=== PATIENT | male | born 1940 | race Caucasian/White ===

== ENCOUNTER 2019-01-28 11:06 | Emergency (ER) | payer MEDICARE, OTHER, SELFPAY ==
[2019-01-28] VITALS (11 sets, daily range): BP systolic 130–159; BP diastolic 68–94; PULSE 58–71; RESP 12–23; TEMP 36.6; O2SAT 92–100
--- NOTE | 2019-01-28 11:20 | DI.RAD.S_ITS ---
PROCEDURE: XR CHEST 1V INDICATIONS: chest pain TECHNIQUE: One view of the chest was acquired. COMPARISON: [facility], CR, XR CHEST 2VW, 12/29/2015, 16:21. FINDINGS: Surgical changes and devices: None. Lungs and pleura: Lungs are clear. No pleural effusions or pneumothorax. Mediastinum: Mediastinal contours appear normal. Heart size is normal. Bones and chest wall: No suspicious bony lesions. Overlying soft tissues appear unremarkable. IMPRESSION: No acute process. Dictated by: Bob Little M.D. on 01/28/2019 at 11:39 Approved by: Bob Little M.D. on 01/28/2019 at 11:39
[2019-01-28 11:34] LABS: Add Manual Diff / Slide Review NO; Basophils Absolute Auto 0 /uL (0-100); Basophils Percent Auto 0.7 % (0-2); Eosinophils Absolute Auto 400 /uL (0-450); Eosinophils Percent Auto 6.9 % (2-4); Hematocrit 40.4 % (41-53); Hemoglobin 13.7 g/dL (13.5-17.5); Lymphocytes Absolute Auto 1400 /uL (1100-4500); Lymphocytes Percent Auto 22.2 % (25-40); Mean Corpuscular HGB Conc 33.8 % (30-36); Mean Corpuscular Hemoglobin 31.6 PG (26-34); Mean Corpuscular Volume 93.4 fL (80-100); Monocytes Absolute Auto 500 /uL (0-900); Monocytes Percent Auto 8.2 % (3-14); Neutrophils Absolute Auto 4000 /uL (1500-7000); Platelet Count 232 X10^3/uL (150-400); Red Blood Cell Count 4.33 X10^6/uL (4.5-5.9); Red Cell Distribution Width 12.9 % (11.6-14.8); White Blood Cell Count 6.4 X10^3/uL (4.5-11.0)
[2019-01-28 11:41] LABS: INR 0.9 (0.9-1.3); Prothrombin Time 10.9 SECONDS (10.1-12.7)
[2019-01-28 11:44] LABS: PTT Partial Thromboplastin Tim 27 SECONDS (26.4-36.2)
[2019-01-28 11:49] LABS: Alanine Aminotransferase 21 IU/L (21-72); Albumin 4.1 g/dL (3.5-5.0); Albumin Globulin Ratio 1.2 (1.0-2.8); Alkaline Phosphatase 44 U/L (38-126); Aspartate Aminotransferase 25 IU/L (17-59); BUN Creatinine Ratio 26.4 (6-22); Bilirubin Total 0.5 mg/dL (0.2-1.3); Blood Urea Nitrogen 29 mg/dL (9-20); Carbon Dioxide 27 mmol/L (22-32); Chloride 100 mmol/L (98-107); Creatine Kinase 52 U/L (55-170); Estimated Glomerular Filt Rate > 60.0 mL/min (>60); Globulin 3.4 g/dL (1.7-4.1); Glucose 90 mg/dL (80-110); HEMOLYSIS 26 (0-50); Lipase 80 U/L (23-300); Potassium 4.3 mmol/L (3.4-5.1); Sodium 136 mmol/L (137-145); Total Protein 7.5 g/dL (6.3-8.2)
[2019-01-28] MEDS: ASPIRIN 81 MG TAB 324 MG PO (11:49)
[2019-01-28 11:58] LABS: Troponin I < 0.012 ng/mL (0.01-0.034)
--- NOTE | 2019-01-28 12:00 | ED.CHESTPAIN ---
HPI - Chest Pain General Chief Complaint: Chest Pain Stated Complaint: chest pain on left side Time Seen by Provider: 01/28/19 11:21 Source: patient Mode of arrival: ambulatory Limitations: no limitations History of Present Illness HPI narrative: 79-year-old male without a prior cardiac history here for evaluation of a couple days of sharp left-sided chest discomfort. He states that it lasts seconds. Does not seem to be associated with activity however he did have several episodes of yesterday when he was moving some brush around. No other associated symptoms. Not better worse with palpation or breathing. Has not tried anything for prior to arrival. Related Data Home Medications Medication Instructions Recorded Confirmed Glucosamine 1 tab PO DAILY 01/28/19 01/28/19 losartan-hydrochlorothiazide 1 tab PO QPM 01/28/19 01/28/19 pravastatin 20 mg PO QPM 01/28/19 01/28/19 Allergies Allergy/AdvReac Type Severity Reaction Status Date / Time No Known Drug Allergies Allergy Verified 01/28/19 11:13 Review of Systems Constitutional Denies fever(s) and Denies headache(s) ENT Ears, Nose, Mouth, and Throat: Denies headache(s) Cardiovascular Reports chest pain (Sharp left-sided occasional chest pain), Denies edema, Denies leg edema and Denies dyspnea Respiratory Denies cough and Denies dyspnea Gastrointestinal Gastrointestinal: Denies abdominal pain, Denies nausea and Denies vomiting Genitourinary Denies dysuria Musculoskeletal Denies back pain, Denies myalgias and Denies arthralgias Integumentary/Breasts Denies rash Neurologic Denies behavioral changes and Denies headache(s) Psychiatric Denies behavioral changes Hematologic/Lymphatic Denies easy bleeding and Denies easy bruising Allergic/Immunologic Denies urticaria PFSH Medical History Healthy adult (Acute) Social History Smoking Status: Never smoker Social History Smoking Status: Never smoker Exam Initial Vital Signs Initial Vital Signs: Vital Signs Temperature 97.8 F 01/28/19 11:10 Pulse Rate 70 01/28/19 11:10 Respiratory Rate 14 01/28/19 11:10 Blood Pressure 147/81 H 01/28/19 11:10 Pulse Oximetry 97 01/28/19 11:10 Const General: cooperative, healthy appearing, comfortable, well developed, well groomed and No acute distress Orientation: alert, awake and oriented x3 HENMT Head: normal to inspection and normocephalic Chest Chest: normal inspection of the chest Resp Effort & Inspection: normal respiratory effort Auscultation: clear to auscultation bilaterally Cardio Rate: regular rate Rhythm: regular rhythm Pulses: radial pulses present GI Inspection: non-distended Palpation: soft, No firm and No tender Skin Lesions: no lesions Rashes: no rashes Neuro General: alert, awake and oriented x3 Cognition: normal cognition Speech: speech normal Extrem General: normal to inspection and capillary refill normal Psych Appearance: grossly normal and well kempt Course Orders Ordered: ED Orders 01/28/19 11:20 XR chest 1V Stat EKG-12 Lead Stat 01/28/19 11:25 Complete Blood Count AUTO DIFF Stat Comprehensive Metabolic Panel Stat Lipase Stat Partial Thromboplastin Time Stat Prothrombin Time INR Stat Troponin & CK Cardiac Panel Stat 01/28/19 14:37 Troponin I Stat Discontinued Medications Aspirin (Aspirin Chew) 324 mg PO NOW ONE Stop: 01/28/19 11:21 Last Admin: 01/28/19 11:49 Dose: 324 mg Vital Signs - 8 hr 01/28/19 11:10 01/28/19 11:30 01/28/19 12:00 Temperature 97.8 F Pulse Rate 70 68 67 Respiratory Rate 14 21 13 Blood Pressure 147/81 H Blood Pressure [Right Arm] 130/72 156/94 H Pulse Oximetry 97 98 100 01/28/19 12:30 01/28/19 13:02 01/28/19 13:30 Temperature Pulse Rate 58 L 65 65 Respiratory Rate 18 12 14 Blood Pressure Blood Pressure [Right Arm] 135/78 146/83 H 159/68 H Pulse Oximetry 97 100 100 01/28/19 14:00 01/28/19 14:30 01/28/19 15:00 Temperature Pulse Rate 62 71 67 Respiratory Rate 12 16 23 Blood Pressure Blood Pressure [Right Arm] 140/79 141/80 H 143/83 H Pulse Oximetry 100 92 97 01/28/19 15:30 01/28/19 16:00 Temperature Pulse Rate 67 67 Respiratory Rate 22 Blood Pressure Blood Pressure [Right Arm] 149/81 H 142/80 H Pulse Oximetry 97 MDM - Chest Pain Lab Data Attestation: I reviewed the patient's lab results. Result diagrams: 01/28/19 11:25 01/28/19 11:25 Lab Results 01/28/19 01/28/19 01/28/19 Range/Units 11:25 11:25 11:25 WBC 6.4 (4.5-11.0) X10^3/uL RBC 4.33 L (4.5-5.9) X10^6/uL Hgb 13.7 (13.5-17.5) g/dL Hct 40.4 L (41-53) % MCV 93.4 (80-100) fL MCH 31.6 (26-34) PG MCHC 33.8 (30-36) % RDW 12.9 (11.6-14.8) % Plt Count 232 (150-400) X10^3/uL Neut % (Auto) 62.0 (50-75) % Lymph % (Auto) 22.2 L (25-40) % [place] % (Auto) 8.2 (3-14) % Eos % (Auto) 6.9 H (2-4) % Baso % (Auto) 0.7 (0-2) % Neut # (Auto) 4000 (9068-8331) /uL Lymph # (Auto) 1400 (7221-4040) /uL [place] # (Auto) 500 (0-900) /uL Eos # (Auto) 400 (0-450) /uL Baso # (Auto) 0 (0-100) /uL PT 10.9 (10.1-12.7) SECONDS INR 0.9 (0.9-1.3) APTT 27 (26.4-36.2) SECONDS Sodium 136 L (137-145) mmol/L Potassium 4.3 (3.4-5.1) mmol/L Chloride 100 (98-107) mmol/L Carbon Dioxide 27 (22-32) mmol/L BUN 29 H (9-20) mg/dL Creatinine 1.10 (0.66-1.25) mg/dL Estimated GFR > 60.0 (>60) mL/min BUN/Creatinine Ratio 26.4 H (6-22) Glucose 90 (80-110) mg/dL Calcium 9.0 (8.4-10.2) mg/dL Total Bilirubin 0.5 (0.2-1.3) mg/dL AST 25 (17-59) IU/L ALT 21 (21-72) IU/L Alkaline Phosphatase 44 (38-126) U/L Total Creatine Kinase 52 L (55-170) U/L CK-MB (CK-2) TNP CK-MB (CK-2) Rel Index TNP Troponin I < 0.012 (0.01-0.034) ng/mL Total Protein 7.5 (6.3-8.2) g/dL Albumin 4.1 (3.5-5.0) g/dL Globulin 3.4 (1.7-4.1) g/dL Albumin/Globulin Ratio 1.2 (1.0-2.8) Lipase 80 (23-300) U/L 01/28/19 Range/Units 14:37 WBC (4.5-11.0) X10^3/uL RBC (4.5-5.9) X10^6/uL Hgb (13.5-17.5) g/dL Hct (41-53) % MCV (80-100) fL MCH (26-34) PG MCHC (30-36) % RDW (11.6-14.8) % Plt Count (150-400) X10^3/uL Neut % (Auto) (50-75) % Lymph % (Auto) (25-40) % [place] % (Auto) (3-14) % Eos % (Auto) (2-4) % Baso % (Auto) (0-2) % Neut # (Auto) (2043-8545) /uL Lymph # (Auto) (2867-9343) /uL [place] # (Auto) (0-900) /uL Eos # (Auto) (0-450) /uL Baso # (Auto) (0-100) /uL PT (10.1-12.7) SECONDS INR (0.9-1.3) APTT (26.4-36.2) SECONDS Sodium (137-145) mmol/L Potassium (3.4-5.1) mmol/L Chloride (98-107) mmol/L Carbon Dioxide (22-32) mmol/L BUN (9-20) mg/dL Creatinine (0.66-1.25) mg/dL Estimated GFR (>60) mL/min BUN/Creatinine Ratio (6-22) Glucose (80-110) mg/dL Calcium (8.4-10.2) mg/dL Total Bilirubin (0.2-1.3) mg/dL AST (17-59) IU/L ALT (21-72) IU/L Alkaline Phosphatase (38-126) U/L Total Creatine Kinase (55-170) U/L CK-MB (CK-2) CK-MB (CK-2) Rel Index Troponin I < 0.012 (0.01-0.034) ng/mL Total Protein (6.3-8.2) g/dL Albumin (3.5-5.0) g/dL Globulin (1.7-4.1) g/dL Albumin/Globulin Ratio (1.0-2.8) Lipase (23-300) U/L Imaging Data Chest x-ray: Radiologist's impression: [address] [address] XRay Report Signed Patient: Mushtaq Casper CMR#: [id number] : 1940Acct:[id number] Age/Sex: 79 / MDate of Service: 01/28/19 Loc: ED Accession Number: [id number] Procedure: XR chest 1V Ordering Provider: Dinesh Peres D.O. PROCEDURE: XR CHEST 1V INDICATIONS: chest pain TECHNIQUE: One view of the chest was acquired. COMPARISON: [facility], , XR CHEST 2VW, 12/29/2015, 16:21. FINDINGS: Surgical changes and devices: None. Lungs and pleura: Lungs are clear. No pleural effusions or pneumothorax. Mediastinum: Mediastinal contours appear normal. Heart size is normal. Bones and chest wall: No suspicious bony lesions. Overlying soft tissues appear unremarkable. IMPRESSION: No acute process. Dictated by: Bob Little M.D. on 01/28/2019 at 11:39 Approved by: Bob Little M.D. on 01/28/2019 at 11:39 ECG Data Attestation: I personally reviewed and interpreted this ECG as follows: Prior ECG tracings: not available for review Interpretation: Sinus rhythm Ventricular rate is 69 Normal axis It over QRS Nonspecific ST T wave changes MDM Narrative Medical decision making narrative: Patient here with very atypical left-sided chest pain. They were sharp, stabbing left-sided pain that lasting seconds. His troponin has been negative x2. He is stable. I have a low suspicion that this is ACS. I feel given his EKG, his history and and his 2-troponins that he could follow up as an outpatient for further testing. We did discuss this. We did discuss return precautions. We did discuss the importance of following up with his primary doctor. He expressed understanding and agreement with plan. Discharge Plan Departure Interventions: ED Discharge Assessment Last Done: 01/28/19 16:09 Prescriptions: No Action pravastatin 20 mg Tablet 20 mg PO QPM RF: 0 losartan-hydrochlorothiazide 50-12.5 mg Tablet 1 tab PO QPM RF: 0 Glucosamine 1 tab PO DAILY RF: 0
[2019-01-28 15:12] LABS: Troponin I < 0.012 ng/mL (0.01-0.034)
--- NOTE | 2019-01-28 18:21 | ED_ITS ---
HPI - Chest Pain General Chief Complaint: Chest Pain Stated Complaint: chest pain on left side Time Seen by Provider: 01/28/19 11:21 Source: patient Mode of arrival: ambulatory Limitations: no limitations Related Data Home Medications Medication Instructions Recorded Confirmed Glucosamine 1 tab PO DAILY 01/28/19 01/28/19 losartan-hydrochlorothiazide 1 tab PO QPM 01/28/19 01/28/19 pravastatin 20 mg PO QPM 01/28/19 01/28/19 Allergies Allergy/AdvReac Type Severity Reaction Status Date / Time No Known Drug Allergies Allergy Verified 01/28/19 11:13 Review of Systems Constitutional Denies headache(s) ENT Ears, Nose, Mouth, and Throat: Denies headache(s) Neurologic Denies behavioral changes and Denies headache(s) Psychiatric Denies behavioral changes PFSH Medical History Healthy adult (Acute) Social History Smoking Status: Never smoker Social History Smoking Status: Never smoker Exam Initial Vital Signs Initial Vital Signs: Vital Signs Temperature 97.8 F 01/28/19 11:10 Pulse Rate 70 01/28/19 11:10 Respiratory Rate 14 01/28/19 11:10 Blood Pressure 147/81 H 01/28/19 11:10 Pulse Oximetry 97 01/28/19 11:10 Course Orders Ordered: ED Orders 01/28/19 11:20 XR chest 1V Stat EKG-12 Lead Stat 01/28/19 11:25 Complete Blood Count AUTO DIFF Stat Comprehensive Metabolic Panel Stat Lipase Stat Partial Thromboplastin Time Stat Prothrombin Time INR Stat Troponin & CK Cardiac Panel Stat 01/28/19 14:37 Troponin I Stat Discontinued Medications Aspirin (Aspirin Chew) 324 mg PO NOW ONE Stop: 01/28/19 11:21 Last Admin: 01/28/19 11:49 Dose: 324 mg Vital Signs - 8 hr 01/28/19 11:10 01/28/19 11:30 01/28/19 12:00 Temperature 97.8 F Pulse Rate 70 68 67 Respiratory Rate 14 21 13 Blood Pressure 147/81 H Blood Pressure [Right Arm] 130/72 156/94 H Pulse Oximetry 97 98 100 01/28/19 12:30 01/28/19 13:02 01/28/19 13:30 Temperature Pulse Rate 58 L 65 65 Respiratory Rate 18 12 14 Blood Pressure Blood Pressure [Right Arm] 135/78 146/83 H 159/68 H Pulse Oximetry 97 100 100 01/28/19 14:00 01/28/19 14:30 01/28/19 15:00 Temperature Pulse Rate 62 71 67 Respiratory Rate 12 16 23 Blood Pressure Blood Pressure [Right Arm] 140/79 141/80 H 143/83 H Pulse Oximetry 100 92 97 01/28/19 15:30 01/28/19 16:00 Temperature Pulse Rate 67 67 Respiratory Rate 22 Blood Pressure Blood Pressure [Right Arm] 149/81 H 142/80 H Pulse Oximetry 97 MDM - Chest Pain Lab Data Result diagrams: 01/28/19 11:25 01/28/19 11:25 Lab Results 01/28/19 01/28/19 01/28/19 Range/Units 11:25 11:25 11:25 WBC 6.4 (4.5-11.0) X10^3/uL RBC 4.33 L (4.5-5.9) X10^6/uL Hgb 13.7 (13.5-17.5) g/dL Hct 40.4 L (41-53) % MCV 93.4 (80-100) fL MCH 31.6 (26-34) PG MCHC 33.8 (30-36) % RDW 12.9 (11.6-14.8) % Plt Count 232 (150-400) X10^3/uL Neut % (Auto) 62.0 (50-75) % Lymph % (Auto) 22.2 L (25-40) % [place] % (Auto) 8.2 (3-14) % Eos % (Auto) 6.9 H (2-4) % Baso % (Auto) 0.7 (0-2) % Neut # (Auto) 4000 (1872-8813) /uL Lymph # (Auto) 1400 (7366-4350) /uL [place] # (Auto) 500 (0-900) /uL Eos # (Auto) 400 (0-450) /uL Baso # (Auto) 0 (0-100) /uL PT 10.9 (10.1-12.7) SECONDS INR 0.9 (0.9-1.3) APTT 27 (26.4-36.2) SECONDS Sodium 136 L (137-145) mmol/L Potassium 4.3 (3.4-5.1) mmol/L Chloride 100 (98-107) mmol/L Carbon Dioxide 27 (22-32) mmol/L BUN 29 H (9-20) mg/dL Creatinine 1.10 (0.66-1.25) mg/dL Estimated GFR > 60.0 (>60) mL/min BUN/Creatinine Ratio 26.4 H (6-22) Glucose 90 (80-110) mg/dL Calcium 9.0 (8.4-10.2) mg/dL Total Bilirubin 0.5 (0.2-1.3) mg/dL AST 25 (17-59) IU/L ALT 21 (21-72) IU/L Alkaline Phosphatase 44 (38-126) U/L Total Creatine Kinase 52 L (55-170) U/L CK-MB (CK-2) TNP CK-MB (CK-2) Rel Index TNP Troponin I < 0.012 (0.01-0.034) ng/mL Total Protein 7.5 (6.3-8.2) g/dL Albumin 4.1 (3.5-5.0) g/dL Globulin 3.4 (1.7-4.1) g/dL Albumin/Globulin Ratio 1.2 (1.0-2.8) Lipase 80 (23-300) U/L 01/28/19 Range/Units 14:37 WBC (4.5-11.0) X10^3/uL RBC (4.5-5.9) X10^6/uL Hgb (13.5-17.5) g/dL Hct (41-53) % MCV (80-100) fL MCH (26-34) PG MCHC (30-36) % RDW (11.6-14.8) % Plt Count (150-400) X10^3/uL Neut % (Auto) (50-75) % Lymph % (Auto) (25-40) % [place] % (Auto) (3-14) % Eos % (Auto) (2-4) % Baso % (Auto) (0-2) % Neut # (Auto) (0036-1845) /uL Lymph # (Auto) (8325-0093) /uL [place] # (Auto) (0-900) /uL Eos # (Auto) (0-450) /uL Baso # (Auto) (0-100) /uL PT (10.1-12.7) SECONDS INR (0.9-1.3) APTT (26.4-36.2) SECONDS Sodium (137-145) mmol/L Potassium (3.4-5.1) mmol/L Chloride (98-107) mmol/L Carbon Dioxide (22-32) mmol/L BUN (9-20) mg/dL Creatinine (0.66-1.25) mg/dL Estimated GFR (>60) mL/min BUN/Creatinine Ratio (6-22) Glucose (80-110) mg/dL Calcium (8.4-10.2) mg/dL Total Bilirubin (0.2-1.3) mg/dL AST (17-59) IU/L ALT (21-72) IU/L Alkaline Phosphatase (38-126) U/L Total Creatine Kinase (55-170) U/L CK-MB (CK-2) CK-MB (CK-2) Rel Index Troponin I < 0.012 (0.01-0.034) ng/mL Total Protein (6.3-8.2) g/dL Albumin (3.5-5.0) g/dL Globulin (1.7-4.1) g/dL Albumin/Globulin Ratio (1.0-2.8) Lipase (23-300) U/L Discharge Plan Departure Interventions: ED Discharge Assessment Last Done: 01/28/19 16:09 Instructions: DI for Atypical Chest Pain Activity Restrictions/Additional Instructions: Continue all of your medications as directed. You can call the [facility] at [phone]. Or you can call the [facility] at [phone]. Return to the emergency department for any new or worsening symptoms Prescriptions: No Action pravastatin 20 mg Tablet 20 mg PO QPM RF: 0 losartan-hydrochlorothiazide 50-12.5 mg Tablet 1 tab PO QPM RF: 0 Glucosamine 1 tab PO DAILY RF: 0
== END 2019-01-28 16:10 | disposition home or self-care (01) ==
PROVIDERS: Emergency Provider Emergency Medicine
DX: R07.89 Other chest pain (principal)
CPT/HCPCS: 36415; 36591; 71045; 80053; 82550; 83690; 84484; 85025; 85610; 85730; 93005; 93010; 99284; 99285

== ENCOUNTER 2019-09-14 12:11 | Emergency (ER) | payer MEDICARE, OTHER, SELFPAY ==
[2019-09-14 12:33] VITALS: BP 158/86; PULSE 66; RESP 14; TEMP 36.7; O2SAT 100; BMI 29.1
--- NOTE | 2019-09-14 12:50 | ED.BACK ---
HPI - Back Pain/Injury General Chief Complaint: Back Pain/Injury Stated Complaint: back went out Time Seen by Provider: 09/14/19 12:28 Source: patient Mode of arrival: Ambulatory Limitations: no limitations History of Present Illness HPI Narrative: 79-year-old male here for evaluation of back pain. Patient states that he was sitting down to go to the bathroom this morning when his sudden onset of back pain. He did urinate on himself the time but he thought that was because he had use the restroom. He does not have any saddle anesthesia. No radiation down his legs. He does have a history of prostate cancer. States the pain comes and goes. Not worse with palpation but is worse with movement. Related Data Home Medications Medication Instructions Recorded Confirmed losartan-hydrochlorothiazide 1 tab PO QPM 01/28/19 09/14/19 pravastatin 20 mg PO DAILY 09/14/19 09/14/19 Allergies Allergy/AdvReac Type Severity Reaction Status Date / Time No Known Drug Allergies Allergy Verified 01/28/19 11:13 Review of Systems Constitutional Constitutional: Denies frequent falls and Denies headache(s) ENT Ears, Nose, Mouth, and Throat: Denies headache(s) Cardiovascular Cardiovascular: Denies chest pain and Denies dyspnea Respiratory Respiratory: Denies dyspnea Gastrointestinal Gastrointestinal: Denies abdominal pain Musculoskeletal Musculoskeletal: Denies myalgias and Denies arthralgias Integumentary/Breasts Skin/Breast: Denies lesions and Denies rash Neurologic Neurologic: Denies behavioral changes, Denies frequent falls and Denies headache(s) Psychiatric Psychiatric: Denies behavioral changes Hematologic/Lymphatic Hematologic/Lymphatic: Denies easy bleeding and Denies easy bruising Patient History Medical History Healthy adult (Acute) Hyperlipidemia (Acute) Hypertension (Acute) Prostate cancer (Acute) Social History Smoking Status: Never smoker alcohol intake frequency: 0-2 drinks per day Substance Use Type: does not use Exam Initial Vital Signs Initial Vital Signs: Vital Signs Temperature 98.1 F 09/14/19 12:33 Pulse Rate 66 09/14/19 12:33 Respiratory Rate 14 09/14/19 12:33 Blood Pressure 158/86 H 09/14/19 12:33 Pulse Oximetry 100 09/14/19 12:33 Const General: cooperative, comfortable, well developed and well groomed Orientation: alert and oriented x3 HENMT Head: normal to inspection and normocephalic Back/Spine/Pelvis Back: No CVA tenderness Cervical Spine: No collar present and No cervical spasm Thoracic/Lumbar Spine: No paraspinal tenderness, No thoracic spinal tenderness and No lumbar spinal tenderness Skin Lesions: no lesions Rashes: no rashes Neuro General: alert, awake and oriented x3 Cognition: normal cognition Speech: speech normal Gait: normal gait Motor: muscle tone normal throughout Sensory Exam: no sensory deficits noted Extrem General: normal to inspection and capillary refill normal Psych Appearance: grossly normal and well kempt Course Orders Ordered: ED Orders 09/14/19 12:51 CT lumbar spine wo con Stat Discontinued Medications Hydrocodone Bitart/Acetaminophen ([place] 5/325) 1 tab PO NOW ONE Stop: 09/14/19 12:52 Last Admin: 09/14/19 13:13 Dose: 1 tab Documented by: TREY Vital Signs Vital signs: Vital Signs - 8 hr 09/14/19 12:33 09/14/19 14:02 Temperature 98.1 F Pulse Rate 66 78 Respiratory Rate 14 14 Blood Pressure 158/86 H Blood Pressure [Right Arm] 130/90 Pulse Oximetry 100 98 MDM - Back Pain/Injury Lab Data Attestation: I reviewed the patient's lab results. Labs: Urine Dip Bedside Urine Glucose Negative Bedside Urine Bilirubin - Negative Bedside Urine Ketone - Negative Urine Specific [place] 1.010 Bedside Urine Occult Blood - Negative Bedside Urine pH 6.0 Bedside Urine Protein - Negative Bedside Urine Urobilinogen - Negative Bedside Urine Nitrite - Negative Bedside Urine Leukocytes - Negative Esterase Imaging Data CT lumbar spine: Radiologist's impression: [address] [address] [address] Scan Report Signed Patient: Mushtaq Casper CMR#: [id number] : 8Acct:[id number] Age/Sex: 79 / MDate of Service: 09/14/19 Loc: ED Accession Number: [id number] Procedure: CT lumbar spine wo con Ordering Provider: Dinesh Peres D.O. PROCEDURE: CT LUMBAR SPINE WO CON INDICATIONS: L spine pain with hx of prostate CA TECHNIQUE: Noncontrast 3 mm thick sections acquired from the T12 level to the sacrum. Sagittal and coronal reformats were constructed. For radiation dose reduction, the following was used: automated exposure control. COMPARISON: None. FINDINGS: Image quality: Excellent. Bones: There is normal bony alignment there is mild degenerative anterolisthesis of L4 on L5 measuring approximately 6 mm. There is mild degenerative retrolisthesis of L5 on S1 measuring approximately 4 mm. The other vertebral bodies are normally aligned. No lytic or blastic bony lesions. Central spinal caliber is of normal overall caliber. No pars defects. T11-T12: No canal stenosis. Bilateral facet hypertrophy. Mild lateral foraminal narrowing. T12-L1: Vacuum disc. Mild disc height loss. Mild disc bulge. No canal stenosis. Right facet hypertrophy. Mild right foraminal narrowing. L1-L2: Vacuum disc. Mild disc height loss. Diffuse posterior disc bulge plus osteophyte. Bilateral facet hypertrophy. Mild canal stenosis. Mild bilateral foraminal narrowing. L2-L3: Diffuse disc bulge. Facet and ligament hypertrophy. Moderate canal stenosis. Moderate bilateral foraminal narrowing with flattening of the bilateral L2 nerve root sleeves. L3-L4: Disc bulge. Facet and ligament hypertrophy. Moderate to severe canal stenosis. Moderate bilateral foraminal narrowing with flattening of the bilateral L3 nerve root sleeves. L4-L5: Mild anterolisthesis of L4 on L5. Diffuse disc bulge. Bulky facet and ligament hypertrophy. Canal stenosis is overestimated based on scan plane in the axial plane. It is likely moderate. There is moderate right foraminal narrowing with flattening of the right L4 nerve root sleeve. There is mild left foraminal narrowing. L5-S1: Severe chronic disc height loss with vacuum disc. Mild degenerative retrolisthesis of L5 on S1. Posterior disc bulge. Mild canal stenosis. Moderate to severe right foraminal narrowing and moderate left foraminal narrowing with flattening of the bilateral L5 nerve root sleeves are Soft tissues: No retroperitoneal masses or hematomas. Visualized aorta is normal in caliber. IMPRESSION: 1. No compression fracture or lytic or blastic bony lesion 2. Extensive multilevel facet arthropathy. 3. Multilevel canal stenosis is mild at L1-L2, moderate at L2-L3, moderate to severe at L3-4, moderate at L4-L5, and mild at L5-S1. 4. Multilevel foraminal narrowing as described above. Dictated by: Anson Thomson M.D. on 09/14/2019 at 13:15 Approved by: Anson Thomson M.D. on 09/14/2019 at 13:37 MDM Narrative Medical decision making narrative: CT scan shows no signs of metastasis. After pain medication patient was symptom-free and ambulate around the emergency department without any symptoms. He has no red flag symptoms consist for cauda equina. Unable to reproduce symptoms with palpation. No fevers. Urinalysis unremarkable. Hold on further workup for now. Patient states that he is okay with going home. He is given return precautions and follow-up instructions. Expressed understanding and agreement plan. Discharge Plan Departure Patient Disposition: Home Clinical Impression: Lumbar back pain Discharge Date/Time: 09/14/19 14:34 Instructions: DI for Low Back Pain Activity Restrictions/Additional Instructions: Continue all of your medications as directed. Keep all of your scheduled medical appointments. You can take Tylenol for any discomfort. Also recommend light stretching and heat. Contact your primary provider for follow-up. Return to the emergency department for any new or worsening symptoms Prescriptions: No Action pravastatin 20 mg tablet 20 mg PO DAILY RF: 0 losartan-hydrochlorothiazide 50-12.5 mg Tablet 1 tab PO QPM RF: 0
[2019-09-14] MEDS: HYDROCODONE/ACET 5/325 TABLET 1 TAB PO (13:13)
[2019-09-14 14:02] VITALS: BP 130/90; PULSE 78; RESP 14; O2SAT 98
== END 2019-09-14 14:34 | disposition home or self-care (01) ==
PROVIDERS: Emergency Provider Emergency Medicine
DX: M54.5 Low back pain (principal)
CPT/HCPCS: 72131; 81003; 99282; 99284

== ENCOUNTER 2020-07-04 10:07 | Emergency (ER) | payer MEDICARE, OTHER, SELFPAY ==
[2020-07-04 10:11] VITALS: BP 162/82; PULSE 73; RESP 16; TEMP 36.4; O2SAT 98; BMI 28.5
--- NOTE | 2020-07-04 10:19 | DI.RAD.S_ITS ---
PROCEDURE: XR LUMBAR SPINE 2-3V INDICATIONS: pain/no injury TECHNIQUE: 3 views of the lumbar spine were acquired. COMPARISON: None. FINDINGS: Bones: 5 [id number] vertebrae are present. There is mild grade 1 retrolisthesis L2 on L3 and L3 on L4. Multilevel disc space narrowing and endplate osteophyte formation. Multilevel facet hypertrophy throughout the lumbar spine. No vertebral body compression fractures. No suspicious bony lesions. Soft tissues: Overlying bowel gas pattern is normal. No suspicious soft tissue calcifications. IMPRESSION: Multilevel degenerative disc and facet disease. No acute fracture. No osseous lesion. If symptoms and/or clinical suspicion for pathology persist, further assessment with repeat, or advanced imaging (e.g., CT, MRI, or bone scan) may be helpful for further assessment. Dictated by: Bob Little M.D. on 07/04/2020 at 10:36 Approved by: Bob Little M.D. on 07/04/2020 at 10:37
--- NOTE | 2020-07-04 13:28 | ED_ITS ---
HPI - Back Pain/Injury <MARILEE Lopez - Last Filed: 07/04/20 14:35> General Chief Complaint: Back Pain/Injury Stated Complaint: Lower Back Pain Time Seen by Provider: 07/04/20 12:00 Source: patient Mode of arrival: Ambulatory Limitations: no limitations History of Present Illness HPI Narrative: This is a 80 year male, nonsmoker, who presents to ED with chief complain of bilateral low back pain which progressively worsening over a year and increases with movements. Patient denies recent falls or trauma. Patient has history of prostate cancer since 2000 and had prostate removal, left kidney removal in the past. Patient reports prostate cancer had returned in 2014 and has been following up with [facility] for treatment. Patient reports he has a follow-up appointment on 07/15/20 and will get annual bone scan done with urine and blood test. Patient denies fever, chills, nausea or vomiting. Patient denies rashes. Patient denies any new urinary symptoms including burning sensation or dysuria. Patient usually voids every 2 hours and there is no changes on this. Patient had increase stretching a few weeks ago and noticed increasing pain with this. Patient experience bilateral leg mild numbness about 2-3 weeks ago which has resolved at this time. Patient denies saddle anesthesia, incontinence for urine or bladder. Patient denies tingling, numbness, weakness on bilateral extremities. Patient drove himself to ER today. Patient declined to provide urine sample since he had just voided while he was waiting and he will have another test done at [facility]. Related Data Home Medications Medication Instructions Recorded Confirmed losartan-hydrochlorothiazide 1 tab PO QPM 01/28/19 09/14/19 pravastatin 20 mg PO DAILY 09/14/19 09/14/19 Previous Rx's Medication Instructions Recorded cyclobenzaprine 5 - 10 mg PO BEDTIME PRN #10 tab 07/04/20 lidocaine 1 patch TOP Q24H PRN #30 each 07/04/20 Allergies Allergy/AdvReac Type Severity Reaction Status Date / Time No Known Drug Allergies Allergy Verified 01/28/19 11:13 Review of Systems <MARILEE Lopez - Last Filed: 07/04/20 14:35> Review of Systems Narrative: General: Denies fever, chills, fatigue, malaise, sweats. HEENT: Denies sinus pain, ear pain, sore throat, difficulty swallowing, dizziness. Respiratory: Denies dyspnea, cough, wheezing, hemoptysis, sputum. Cardiovascular: Denies chest pain, palpitations, orthopnea, edema. Gastrointestinal: Denies nausea, vomiting, abdominal pain, diarrhea, constipation, melena. : Denies dysuria, frequency, incontinence, hematuria, urinary retention. Musculoskeletal: See HPI Skin: Denies rash, skin lesions, or other. Neurologic: Denies weakness, headache, numbness, change in speech, confusion, seizures, incoordination. Psychiatric: No concerning psychosocial issues. 12-point review of systems is negative except for those stated above. Patient History <MARILEE Lopez - Last Filed: 07/04/20 14:35> Medical History Healthy adult (Acute) Hyperlipidemia (Acute) Hypertension (Acute) Prostate cancer (Acute) Surgical History H/O kidney removal (Acute) Social History Smoking Status: Never smoker Smoking Status: Never smoker alcohol intake frequency: 0-2 drinks per day Substance Use Type: does not use Exam <MARILEE Lopez - Last Filed: 07/04/20 14:35> Narrative Exam Narrative: General appearance: well developed, well nourished, in no acute distress. Head: normocephalic, atraumatic, no scalp lesions, non-tender. ENT: Hearing grossly intact. Nose without bleeding, purulent discharge. Airway patent. Neck/Thyroid: neck supple, full range of motion, no visible masses or meningeal signs. No JVD, non-tender without lymphadenopathy. Skin: no suspicious rashes, lesions over visible areas. Warm and dry and appropriate color for ethnicity. Heart: no clubbing, no cyanosis, no edema. S1 and S2 normal. RRR w/o murmurs, clicks, or bruits. Lungs: Breathing even and unlabored. No stridor. No accessory muscles used. Able to speak in full sentences. Chest: normal shape and expansion. Abdomen: non-obese, non-distended. Neurologic: alert and oriented. Cognitive exam, [employer] and PNS grossly intact on informal exam. Psych: good eye contact, normal affect. Initial Vital Signs Initial Vital Signs: Vital Signs Temperature 97.5 F L 07/04/20 10:11 Pulse Rate 73 07/04/20 10:11 Respiratory Rate 16 07/04/20 10:11 Blood Pressure 162/82 H 07/04/20 10:11 Pulse Oximetry 98 07/04/20 10:11 Back/Spine/Pelvis Back: normal to inspection, No back tenderness, No CVA tenderness, No ecchymosis, No erythema, No mass and No warmth Thoracic/Lumbar Spine: No mass, pain with thoraco-lumbar ROM, No paraspinal tenderness, No thoracic spinal tenderness, No lumbar spinal tenderness, No tilt present and other (Patient reports bilateral paraspinal lumbar region deep discomfort) <Santana Melchor MD - Last Filed: 07/05/20 07:39> Initial Vital Signs Initial Vital Signs: Vital Signs Temperature 97.5 F L 07/04/20 10:11 Pulse Rate 73 07/04/20 10:11 Respiratory Rate 16 07/04/20 10:11 Blood Pressure 162/82 H 07/04/20 10:11 Pulse Oximetry 98 07/04/20 10:11 Scores <MARILEE Lopez - Last Filed: 07/04/20 14:35> GCS Emily coma scale eye opening: Spontaneous Emily coma scale verbal response: Orientated Emily coma scale motor response: Obey commands Shanks coma scale total score: 15 Course <MARILEE Lopez - Last Filed: 07/04/20 14:35> Orders Ordered: Discontinued Medications Acetaminophen (Tylenol) 650 mg PO NOW ONE Stop: 07/04/20 13:28 Last Admin: 07/04/20 13:57 Dose: 650 mg Documented by: JAYEONER Ibuprofen (Advil) 400 mg PO NOW ONE Stop: 07/04/20 13:28 Last Admin: 07/04/20 13:58 Dose: 400 mg Documented by: JAYEONER Lidocaine (Lidoderm) 1 each TOP NOW ONE Stop: 07/04/20 13:28 Last Admin: 07/04/20 13:58 Dose: 1 each Documented by: BTONER Vital Signs Vital signs: Vital Signs - 8 hr 07/04/20 10:11 07/04/20 14:06 Temperature 97.5 F L Pulse Rate 73 65 Respiratory Rate 16 16 Blood Pressure 162/82 H 188/80 H Pulse Oximetry 98 98 <Santana Melchor MD - Last Filed: 07/05/20 07:39> Orders Ordered: Discontinued Medications Acetaminophen (Tylenol) 650 mg PO NOW ONE Stop: 07/04/20 13:28 Last Admin: 07/04/20 13:57 Dose: 650 mg Documented by: BTONER Ibuprofen (Advil) 400 mg PO NOW ONE Stop: 07/04/20 13:28 Last Admin: 07/04/20 13:58 Dose: 400 mg Documented by: BTONER Lidocaine (Lidoderm) 1 each TOP NOW ONE Stop: 07/04/20 13:28 Last Admin: 07/04/20 13:58 Dose: 1 each Documented by: BTONER Vital Signs Vital signs: Vital Signs - 8 hr 07/04/20 10:11 07/04/20 14:06 Temperature 97.5 F L Pulse Rate 73 65 Respiratory Rate 16 16 Blood Pressure 162/82 H 188/80 H Pulse Oximetry 98 98 MDM - Back Pain/Injury <MARILEE Lopez - Last Filed: 07/04/20 14:35> Differential Diagnosis Differential diagnosis: Likely other (Lumbar strain, UTI, metastasized cancer) Medical Records Attestation: I reviewed the patient's medical records. Imaging Data XR-Lumbar: Radiologist's Impression: [address] [address] XRay Report Signed Patient: Mushtaq Casper CMR#: [id number] : 8Acct:[id number] Age/Sex: 80 / MDate of Service: 07/04/20 Loc: ED Accession Number: [id number] Procedure: XR lumbar spine 2-3V Ordering Provider: Santana Melchor MD PROCEDURE: XR LUMBAR SPINE 2-3V INDICATIONS: pain/no injury TECHNIQUE: 3 views of the lumbar spine were acquired. COMPARISON: None. FINDINGS: Bones: 5 [id number] vertebrae are present. There is mild grade 1 retrolisthesis L2 on L3 and L3 on L4. Multilevel disc space narrowing and endplate osteophyte formation. Multilevel facet hypertrophy throughout the lumbar spine. No vertebral body compression fractures. No suspicious bony lesions. Soft tissues: Overlying bowel gas pattern is normal. No suspicious soft tissue calcifications. IMPRESSION: Multilevel degenerative disc and facet disease. No acute fracture. No osseous lesion. If symptoms and/or clinical suspicion for pathology persist, further assessment with repeat, or advanced imaging (e.g., CT, MRI, or bone scan) may be helpful for further assessment. Dictated by: Bob Little M.D. on 07/04/2020 at 10:36 Approved by: Bob Little M.D. on 07/04/2020 at 10:37 [facility] Narrative Medical decision making narrative: This is a 80-year-old gentleman who presents to ED with low back pain which progressively became worse over 1 year. Patient has a history of prostate cancer and receiving his treatment through [facility]. Patient reports he has a follow-up appointment 07/15/20 with bone scan, blood test, and urine test. Patient denies saddle anesthesia, fever, recent instrumentation on his back, recent trauma or fall, incontinence problems. Lumbar x-ray test shows no acute findings but multiple degenerative disc and facet disease. Patient had CT lumbar on August 2019 when he visited ED with low back pain which showed disc bulging in L2-L3, L3-L4, L4-L5, canal stenosis in L5-S1. Low back pain has been treated with lidocaine patch, Tylenol and Motrin since patient drove himself to ED. discharged to home with lidocaine patch and Flexeril as needed for pain. Patient advised to follow-up with [facility] as scheduled and discussed return precautions. Patient declined to provide urine sample since patient does not have urinary symptoms and is not able to provided at this time. Patient verbalized understanding and in agreement with treatment plan. Discharge Plan Departure Patient Disposition: Home Clinical Impression: Strain of lumbar region Qualifiers: Encounter type: initial encounter Qualified Code(s): S39.012A - Strain of muscle, fascia and tendon of lower back, initial encounter Discharge Date/Time: 07/04/20 14:06 Activity Restrictions/Additional Instructions: You have been diagnosed with [lumbar strain. X-ray test does not show acute findings such as fracture, dislocation, bony lesions. ]. What to do: *Take your medications as directed. You can take [id number] Tylenol and or ibuprofen as needed for discomfort. Tylenol 650 up to 3 to 4 times a day as needed for pain. Ibuprofen 400 mg up to 3 times a day as needed for pain with food. Flexeril/cyclobenzaprine which is muscle relaxant as needed for muscle tightness. Lidocaine patch which stays on for 12 hours and off for 12 hours for pain. If this is not covered by insurance you can use [id number] lidocaine patch 4% for pain. [facility] in [place]. *Follow up with your primary care provider in 2-3 days, call for an appointment. Let them know you were seen in the ED and that we asked you to be seen in follow up. Please follow-up with [facility] as scheduled next week for blood test, bone scan, urine test. I have provided [facility] phone number to arrange primary care physician. *Return to ED if you have any new, worsening, or concerning symptoms, such as [fever, rash, chest pain, breathing difficulty, unable to tolerate fluids, urinary symptoms or any acute concerns]. Prescriptions: New cyclobenzaprine 5 mg tablet 5 - 10 mg PO BEDTIME PRN (Reason: muscle spasm) Qty: 10 RF: 0 lidocaine 5 % adhesive patch,medicated 1 patch TOP Q24H PRN (Reason: pain) Qty: 30 RF: 0 No Action pravastatin 20 mg tablet 20 mg PO DAILY RF: 0 losartan-hydrochlorothiazide 50-12.5 mg Tablet 1 tab PO QPM RF: 0 Referrals: [facility] [Outside] <Santana Melchor MD - Last Filed: 07/05/20 07:39> Cosign ED Attending Cosignature Attestation: I was immediately available in the department for consultation. This documentation has been reviewed and I agree with assessment and plan. Supervised by Santana Melchor MD
[2020-07-04] MEDS: ACETAMINOPHEN 325 MG TABLET 650 MG PO (13:57)
[2020-07-04] MEDS: IBUPROFEN 400 MG TABLET PO (13:58)
[2020-07-04] MEDS: LIDOCAINE PATCH 1 EACH ADH..PATCH TOP (13:58)
[2020-07-04 14:06] VITALS: BP 188/80; PULSE 65; RESP 16; O2SAT 98
== END 2020-07-04 14:06 | disposition home or self-care (01) ==
PROVIDERS: Emergency Provider Nurse Practitioner Family
DX: S39.012A Strain of muscle, fascia and tendon of lower back, initial encounter (principal); E78.5 Hyperlipidemia, unspecified; I10 Essential (primary) hypertension; C61 Malignant neoplasm of prostate
CPT/HCPCS: 72100; 99283

== ENCOUNTER 2020-09-01 11:03 | Emergency (ER) | payer MEDICARE, OTHER, SELFPAY ==
[2020-09-01 11:08] VITALS: BP 180/90; PULSE 78; RESP 14; TEMP 36.6; O2SAT 96; BMI 27.1
[2020-09-01 11:12] VITALS: PULSE 68; O2SAT 97
[2020-09-01 11:30] VITALS: PULSE 69; O2SAT 97
--- NOTE | 2020-09-01 11:32 | ED.URI ---
HPI - URI/Sore Throat <Pauline Magallanes PA-C - Last Filed: 09/01/20 13:35> General Chief Complaint: Upper Respiratory Symptoms Stated Complaint: SINUS PROBLEM Time Seen by Provider: 09/01/20 11:11 Source: patient Mode of arrival: Ambulatory Limitations: no limitations History of Present Illness HPI Narrative: This is an 80-year-old gentleman with a history of prostate cancer, nephrectomy, chronic sinusitis who presents to the emergency department complaining of worsening sinusitis over the last few weeks particularly in the last few days. Patient states he has been having sinus issues again for the last few months however in the last couple of weeks he has had increased thick drainage that is yellowish white ?like buttermilk but thicker? with dark spots in it. He has been doing a Neti pot but this has been ineffective recently because things are so blocked up it does not work, he was also using nasal sprays but stopped these over a week ago at the direction of an ENT doctor he saw 2 weeks ago. He notes that ?this is the worst it has ever been because I can not even open my nose to breathe out of it at all?. He is not currently undergoing any treatment for prostate cancer but is being monitored at every 3 months with his next appointment next month. He saw his primary care doctor yesterday and had labs drawn and was told that he was mildly anemic. He does say the last week or so when his sinuses have been more blocked up he feels like it is harder to breathe at times when he is moving around and doing things but he feels fairly confident that this is due to his sinuses being plugged and he has to breathe out of his mouth. He has no other complaints or concerns today states he has been otherwise in his normal state of health denies fevers, chills, nausea, vomiting, abdominal pain, chest pain, swelling of LE or any other symptoms. MD Complaint: nasal congestion and other Onset (ago): week(s) (Worsened over the last 2 weeks, has been bothering him for a few months history of sinus issues for many years) Duration: constant Severity: severe Severity scale (1-10): 2 (Not especially painful) Relieving factors: OTC nasal spray (Stopped using this about 8 days ago at direction of ENT) Exacerbating factors: nothing Description of mucous: yellow and purulent Able to tolerate fluids by mouth: Yes Associated symptoms: denies other symptoms Treatments prior to arrival: none Related Data Home Medications Medication Instructions Recorded Confirmed losartan-hydrochlorothiazide 1 tab PO QPM 01/28/19 09/14/19 pravastatin 20 mg PO DAILY 09/14/19 09/14/19 oxymetazoline 0.05 % nasal mist 1 spray NASAL ONCE 07/22/20 07/22/20 phenylephrine HCl 0.25 % nasal 1 spray NASAL Q4-6H PRN 07/22/20 07/22/20 spray Previous Rx's Medication Instructions Recorded cyclobenzaprine 5 - 10 mg PO BEDTIME PRN #10 tab 07/04/20 lidocaine 1 patch TOP Q24H PRN #30 each 07/04/20 amoxicillin-pot clavulanate 1 tab PO BID #14 tab 09/01/20 [Augmentin] fluticasone propionate 1 spray NASAL BID #15.8 ml 09/01/20 losartan-hydrochlorothiazide 1 tab PO DAILY #30 tab MDD 1 09/01/20 Allergies Allergy/AdvReac Type Severity Reaction Status Date / Time No Known Drug Allergies Allergy Verified 09/01/20 11:12 Review of Systems <Pauline Magallanes PA-C - Last Filed: 09/01/20 13:35> Review of Systems Narrative: GENERAL: Denies chills, fatigue, malaise, fever, sweats. HEENT: Positive for some slight sinus pressure, nasal congestion and swelling, buttermilk like thick yellowish white discharge from his nose, ear pain, sore throat, difficulty swallowing, dizziness. RESPIRATORY: Denies dyspnea, cough, wheezing, hemoptysis, sputum. CARDIOVASCULAR: Denies chest pain, palpitations, orthopnea, edema, GASTROINTESTINAL: Denies nausea, vomiting, abdominal pain, diarrhea, constipation, melena. : Denies dysuria, frequency, incontinence, hematuria, urinary retention. MUSCULOSKELETAL: denies weakness, joint pain, or bony pain SKIN: Denies rash, skin lesions, or other NEUROLOGIC: Denies weakness, headache, numbness, change in speech, confusion, seizures, incoordination. PSYCHIATRIC: No concerning psychosocial issues. 12 point review of systems is negative except for those stated above ROS Unobtainable: All systems reviewed & are unremarkable except as noted in HPI and below Patient History <Pauline Magallanes PA-C - Last Filed: 09/01/20 13:35> Medical History Healthy adult (Acute) Hyperlipidemia (Acute) Hypertension (Acute) Prostate cancer (Acute) Surgical History H/O kidney removal (Acute) Social History Smoking Status: Never smoker Smoking Status: Never smoker alcohol intake frequency: 0-2 drinks per day Substance Use Type: does not use Exam <Pauline Magallanes PA-C - Last Filed: 09/01/20 13:35> Narrative Exam Narrative: GENERAL: 80 year old patient appears stated age. Well-nourished, well-developed patient, in mild distress. HEAD: Atraumatic. Normocephalic. EYES: Pupils equal round and reactive. Extraocular motions intact. No scleral icterus. No injection or drainage. ENT: Nose without bleeding, there is some purulent drainage visible in the nasal passages, nasal turbinates are difficult to visualize due to soft tissue swelling, skin of the [place] is pink bilaterally, bilateral nasal passages appear occluded. Purulent drainage. Throat without erythema, tonsillar hypertrophy or exudate. Airway patent. No lymphadenopathy NECK: Trachea midline. Non tender, no lymphadenopathy CARDIOVASCULAR: Regular rate and rhythm without murmurs, gallops, or rubs. RESPIRATORY: Clear to auscultation. Breath sounds equal bilaterally. No wheezes, rales, or rhonchi. GASTROINTESTINAL: Abdomen soft, non-tender, nondistended. EXTREMITIES: No edema or joint tenderness. BACK: Nontender without deformity or crepitance. No flank tenderness. NEURO: AOx3. SKIN: No rash or erythema of visible areas Initial Vital Signs Initial Vital Signs: Vital Signs Temperature 97.8 F 09/01/20 11:08 Pulse Rate 78 09/01/20 11:08 Respiratory Rate 14 09/01/20 11:08 Blood Pressure 180/90 H 09/01/20 11:08 Pulse Oximetry 96 09/01/20 11:08 <Dinesh Peres DO - Last Filed: 09/01/20 15:51> Initial Vital Signs Initial Vital Signs: Vital Signs Temperature 97.8 F 09/01/20 11:08 Pulse Rate 78 09/01/20 11:08 Respiratory Rate 14 09/01/20 11:08 Blood Pressure 180/90 H 09/01/20 11:08 Pulse Oximetry 96 09/01/20 11:08 Scores <JENNA Jung Last Filed: 09/01/20 13:35> GCS Emily coma scale eye opening: Spontaneous Emily coma scale verbal response: Orientated [place] coma scale motor response: Obey commands [place]ley coma scale total score: 15 Course <JENNA Jung Last Filed: 09/01/20 13:35> Orders Ordered: ED Orders 09/01/20 11:45 COVID19 -ED/INPAT/OR/L&D Routine Vital Signs Vital signs: Vital Signs - 8 hr 09/01/20 11:08 09/01/20 11:12 09/01/20 11:30 Temperature 97.8 F Pulse Rate 78 68 69 Respiratory Rate 14 Blood Pressure 180/90 H Pulse Oximetry 96 97 97 09/01/20 12:00 09/01/20 12:27 Temperature Pulse Rate 62 Respiratory Rate Blood Pressure 161/90 H Pulse Oximetry 96 <Dinesh Peres DO - Last Filed: 09/01/20 15:51> Orders Ordered: ED Orders 09/01/20 11:45 COVID19 -ED/INPAT/OR/L&D Routine Vital Signs Vital signs: Vital Signs - 8 hr 09/01/20 11:08 09/01/20 11:12 09/01/20 11:30 Temperature 97.8 F Pulse Rate 78 68 69 Respiratory Rate 14 Blood Pressure 180/90 H Pulse Oximetry 96 97 97 09/01/20 12:00 09/01/20 12:27 Temperature Pulse Rate 62 Respiratory Rate Blood Pressure 161/90 H Pulse Oximetry 96 MDM - URI/Sore Throat <JENNA Jung Last Filed: 09/01/20 13:35> Differential Diagnosis Differential diagnosis: Likely sinusitis and other (Chronic sinusitis, viral sinusitis, bacterial sinusitis, COVID-19, hypertension) Medical Records Attestation: I reviewed the patient's medical records. Lab Data Attestation: I reviewed the patient's lab results. Labs: Lab Results 09/01/20 Range/Units 11:45 COVID-19 PCR Negative (Negative) [facility] Narrative Medical decision making narrative: This is a well-appearing 80-year-old gentleman who presents with initial concern of worsening sinusitis, nasal congestion and thick yellowish white nasal discharge. He also reports recent slight shortness of breath ?because I can not breathe through my nose? when he is moving around. Also notes he is out of his blood pressure medication for the past week, forgot to discuss this at his new primary care provider visit yesterday. Patient has no exam symptoms or history suggestive of an acute or systemic illness that would warrant additional workup today, I have low suspicion that his reported mild shortness of breath is caused by a pneumonia or cardiac problem, did order a COVID-19 test as he has not been tested for this and he has had worsening congestion and complaint of a mild shortness of breath in the last few weeks. This returned negative. Given his worsening symptoms over the last few weeks, increased congestion and discharge I think it is likely he is suffering from a bacterial sinusitis, did prescribe both fluticasone nasal spray and Augmentin, counseled the patient not to take the fluticasone for more than a few days. On chart review the patient takes losartan HCTZ, was not able to determine his dose prescribed the lowest available does for this and advised him to follow-up closely with his new PCP regarding adjusting his dose. He did have labs done yesterday at his PCP visit, so basic labs are not obtained today. Do not believe that imaging of sinuses is warranted today. Emergency return precautions provided, all questions answered. <Dinesh Peres DO - Last Filed: 09/01/20 15:51> Lab Data Labs: Lab Results 09/01/20 Range/Units 11:45 COVID-19 PCR Negative (Negative) Discharge Plan Departure Patient Disposition: Home Clinical Impression: Acute bacterial sinusitis, Congestion of nasal sinus, COVID-19 ruled out, Encounter for medication refill Hypertension Qualifiers: Hypertension type: unspecified Qualified Code(s): I10 - Essential (primary) hypertension Discharge Date/Time: 09/01/20 12:36 Instructions: DI for Sinusitis, Coronavirus Disease 2019 Activity Restrictions/Additional Instructions: Thank you for letting us be part of your care in the emergency department today. At this point I think that your sinuses are suffering from a bacterial infection, however I do recommend that you call Dr. gustafson and work on following up with him as your continued to have sinus issues. I am going to prescribe antibiotics for you today because her symptoms have been worsening over the last 2 weeks. However because you have chronic issues with your sinuses it is very important to continue to have follow-up with Dr. gustafson as well as her primary care provider. I also recommend you discussed this or any new or ongoing symptoms at your next oncology appointment. Please take medication as prescribed. I have also prescribed fluticasone which is a nasal spray, it is okay to use these were short period of time and because right now your so congested that you can not breathe out of her nose it is appropriate to use this for a few days but you should not use it for any longer than 3 days at a time. Because you have been noting some shortness of breath recently and while this is likely due to your congested sinuses I have also tested due for COVID-19 during yourr emergency department stay. This came back negative.You also states that your out of your blood pressure medication and have not taken it for the past week, your blood pressures were elevated in the emergency department and I have prescribed 30 days of losartan HCTZ which is the blood pressure medication in your chart, however I do not know exactly which does she take so I have started you on the lower dose, you will need to follow-up with your primary care again and discuss your blood pressure medication with him to determine the best dose, in the meantime please monitor your blood pressures at home and if you have problems with lightheadedness dizziness passing out, blood pressure is under 100 for the top number please do not take the medication. As you are aware sometimes you can get rebound swelling and discomfort in your nose after using the sprays and there is some possibility that some of your symptoms could be due to this as you were using these quite frequently up until a little over week ago. If you have any new or worsening symptoms such as fever, chills, nausea, vomiting, headaches, vision changes or any other symptoms of concern to you please do not hesitate to seek medical care or return to the emergency department as needed. Prescriptions: New fluticasone propionate 50 mcg/actuation spray,suspension 1 spray NASAL BID Qty: 15.8 RF: 0 amoxicillin-pot clavulanate [Augmentin] 875-125 mg tablet 1 tab PO BID Qty: 14 RF: 0 losartan-hydrochlorothiazide 50-12.5 mg tablet 1 tab PO DAILY MDD 1 Qty: 30 RF: 0 No Action Ty-Synephrine (phenylephrine) 0.25 % spray,non-aerosol 1 spray NASAL Q4-6H PRNRF: 0 Afrin (oxymetazoline) 0.05 % mist 1 spray NASAL ONCE RF: 0 pravastatin 20 mg tablet 20 mg PO DAILY RF: 0 losartan-hydrochlorothiazide 50-12.5 mg Tablet 1 tab PO QPM RF: 0 cyclobenzaprine 5 mg tablet 5 - 10 mg PO BEDTIME PRN (Reason: muscle spasm) Qty: 10 RF: 0 lidocaine 5 % adhesive patch,medicated 1 patch TOP Q24H PRN (Reason: pain) Qty: 30 RF: 0 Referrals: Emmanuel Gustafson MD [Physician] - Vargas Diaz [Primary Care Provider] - <Dinesh Peres DO - Last Filed: 09/01/20 15:51> Cosign ED Attending Cosignature Attestation: Dr Peres Co-Sign Statement: I was available for consultation during this patient's emergency department visit. This chart is signed by myself for administrative purposes only. I did not have direct contact with this patient during this visit. They were seen independently by the APC.
[2020-09-01 12:00] VITALS: PULSE 62; O2SAT 96
[2020-09-01 12:07] LABS: COVID19 -Nasal RAPID Negative (Negative)
[2020-09-01 12:27] VITALS: BP 161/90
== END 2020-09-01 12:36 | disposition home or self-care (01) ==
PROVIDERS: Emergency Provider Student in an Organized Health Care Education/Training Program; PCP Family Medicine Sports Medicine
DX: J01.90 Acute sinusitis, unspecified (principal); Z03.818 Encounter for observation for suspected exposure to other biological agents ruled out; R09.81 Nasal congestion; Z76.0 Encounter for issue of repeat prescription; I10 Essential (primary) hypertension
CPT/HCPCS: 87635; 99282

== ENCOUNTER 2021-02-17 09:59 | Emergency (ER) | payer MEDICARE, OTHER, SELFPAY ==
[2021-02-17 10:06] VITALS: BP 149/84; PULSE 78; RESP 16; TEMP 36.9; O2SAT 97; BMI 27.8
--- NOTE | 2021-02-17 10:08 | DI.RAD.S_ITS ---
PROCEDURE: XR SHOULDER RT MIN 2V INDICATIONS: fall 6 weeks ago TECHNIQUE: 3 views of the shoulder were acquired. COMPARISON: [facility], CR, XR CHEST 1V, 01/28/2019, 11:29. FINDINGS: Bones: No fractures or dislocations. No suspicious bony lesions. Visualized ribs appear intact. Degenerative changes are seen, with mild subacromial spurring. Soft tissues: No suspicious soft tissue calcifications. The visualized lung demonstrates an unremarkable appearance. IMPRESSION: Unremarkable plain films for age, with degenerative changes noted. If it would be helpful for clinical management decision making, please consider a dedicated shoulder MRI for further evaluation (assuming that there is no contraindication). Dictated by: Ravi Hernandez M.D. on 02/17/2021 at 9:33 Approved by: Ravi Hernandez M.D. on 02/17/2021 at 9:34
--- NOTE | 2021-02-17 10:22 | ED.FALL ---
HPI - Fall General Chief Complaint: Fall Stated Complaint: Fell 6 weeks ago right shoulder pain Time Seen by Provider: 02/17/21 10:06 Source: patient Mode of arrival: Ambulatory Limitations: no limitations History of Present Illness HPI Narrative: This is a pleasant 81-year-old male comes emergency department complaint of a fall 6 weeks ago with right shoulder pain that occurred at that time and has continued without resolution. Patient states on that day he was wearing up the tires of his vehicle, he had the hose for the air to fill his tires stretched, he caught his foot on irregularity on the ground and fell onto both palms. Patient states at that time he had multiple abrasions on his palms particularly the right. He is unsure if he hit his elbow. He did not land on his right shoulder but has continued to have pain. He states he can fully flex his arm at the shoulder above his head if his hand is supinated but when it is pronated he cannot abduct his arm beyond 45? or so. Patient denies any weakness, no numbness, no tingling. He states he did have any bruising or ecchymosis at that time. He has not had any warmth, swelling or other skin changes noted. Patient states he is not able to palpate any bony tenderness but he has too much discomfort to sleep on his right shoulder and he has not had any resolution of his pain. He does take an Aleve daily for his lower back which he states is minimally helpful for the shoulder. He does take medication for hypertension and dyslipidemia and has a prior history of renal cell carcinoma and prostate cancer and is currently in surveillance with [facility] for his renal cancer. Related Data Home Medications Medication Instructions Recorded Confirmed losartan-hydrochlorothiazide 1 tab PO QPM 01/28/19 09/14/19 pravastatin 20 mg PO DAILY 09/14/19 09/14/19 oxymetazoline 0.05 % nasal mist 1 spray NASAL ONCE 07/22/20 07/22/20 phenylephrine HCl 0.25 % nasal 1 spray NASAL Q4-6H PRN 07/22/20 07/22/20 spray Previous Rx's Medication Instructions Recorded cyclobenzaprine 5 - 10 mg PO BEDTIME PRN #10 tab 07/04/20 lidocaine 1 patch TOP Q24H PRN #30 each 07/04/20 amoxicillin-pot clavulanate 1 tab PO BID #14 tab 09/01/20 [Augmentin] fluticasone propionate 1 spray NASAL BID #15.8 ml 09/01/20 losartan-hydrochlorothiazide 1 tab PO DAILY #30 tab MDD 1 09/01/20 Allergies Allergy/AdvReac Type Severity Reaction Status Date / Time No Known Drug Allergies Allergy Verified 09/01/20 11:12 Review of Systems Review of Systems ROS Unobtainable: All systems reviewed & are unremarkable except as noted in HPI and below Patient History Medical History (Updated 02/17/21 @ 10:31 by Aliyah Cabrales DO) Healthy adult Hyperlipidemia Hypertension Prostate cancer Renal cell carcinoma Surgical History H/O kidney removal Social History Smoking Status: Never smoker Smoking Status: Never smoker alcohol intake frequency: 0-2 drinks per day Substance Use Type: does not use Exam Narrative Exam Narrative: GENERAL: Alert and oriented x three, well-nourished male in mild distress. HEENT: Head normocephalic, atraumatic, EOMI, pupils reactive, face symmetric, moist mucous membranes NECK: Supple, full range of motion CARDIOVASCULAR: Regular rate and rhythm without murmurs, rubs or gallops. RESPIRATORY: Breath sounds equal bilaterally, no wheezes rales or rhonchi. ABDOMEN: Soft, nontender. Normoactive bowel sounds all 4 quadrants. No guarding or rebound, rigidity, no mass EXTREMITIES: Normal range of motion with flexion and extension at the shoulder, normal range with 80 duction but patient has discomfort with abduction of right shoulder, patient does not have any bony tenderness of the clavicle, scapula, shoulder, AC joint, for left upper extremity at any point. No bruising, warmth, swelling or other skin changes noted. 2+ radial pulse bilaterally. Patient has 5/5 muscle strength in upper extremities bilaterally with equal switch foreman bilaterally and full flexion extension at the wrist and fingers. No clubbing or edema. Neurovascularly intact. NEUROLOGICAL: Cranial nerves II through XII grossly intact. Moving all extremities SKIN: Warm, dry, no petechiae, no rashes or lesions. Initial Vital Signs Initial Vital Signs: Vital Signs Temperature 98.4 F 02/17/21 10:06 Pulse Rate 78 02/17/21 10:06 Respiratory Rate 16 02/17/21 10:06 Blood Pressure 149/84 H 02/17/21 10:06 Pulse Oximetry 97 02/17/21 10:06 Course Orders Ordered: ED Orders 02/17/21 10:08 XR shoulder RT min 2V Stat Vital Signs Vital signs: Vital Signs - 8 hr 02/17/21 10:06 Temperature 98.4 F Pulse Rate 78 Respiratory Rate 16 Blood Pressure 149/84 H Pulse Oximetry 97 MDM - Fall Imaging Data Extremity x-ray #1: Radiologist's Impression: [place] [id number] [place] [id number] ReportSigned Patient: Mushtaq Casper CMR#: [id number]: 8Acct:[id number]/Sex: 81 / MDate of Service: 02/17/21Loc: EDAccession Number: [id number] Procedure: XR shoulder RT min 2V Ordering Provider: Aliyah Cabrales D.O. PROCEDURE: XR SHOULDER RT MIN 2V INDICATIONS: fall 6 weeks ago TECHNIQUE: 3 views of the shoulder were acquired. COMPARISON: [facility], , XR CHEST 1V, 01/28/2019, 11:29. FINDINGS: Bones: No fractures or dislocations. No suspicious bony lesions. Visualized ribs appear intact. Degenerative changes are seen, with mild subacromial spurring. Soft tissues: No suspicious soft tissue calcifications. The visualized lung demonstrates an unremarkable appearance. IMPRESSION: Unremarkable plain films for age, with degenerative changes noted. If it would be helpful for clinical management decision making, please consider a dedicated shoulder MRI for further evaluation (assuming that there is no contraindication). Dictated by: Ravi Hernandez M.D. on 02/17/2021 at 9:33 Approved by: Ravi Hernandez M.D. on 02/17/2021 at 9:34 [facility] Narrative Medical decision making narrative: 81-year-old male with 6 weeks of right shoulder pain status post fall. No acute fracture. Patient does not have any weakness at appreciate but he does have significant discomfort trying to abduct his left shoulder. Patient likely needs PT and possibly MRI. Patient has been taking Aleve with some help. He is able to accomplish tasks and we discussed he can add Tylenol to his pain regimen. Patient is to contact his primary care for further evaluation. Discharge Plan Departure Patient Disposition: Home Clinical Impression: Injury of right shoulder Instructions: DI for Shoulder Pain Activity Restrictions/Additional Instructions: Follow up with your physician, call for an appointment. I suspect you may have a tendon, ligament or muscle tear in your shoulder. Your physician may order physical therapy and/or additional testing for further evaluation. You may continue Aleve once daily if you find this helpful, you may also take Tylenol with Aleve up to a 1000 mg every 8 hours as needed for pain. Continue with gentle range of motion as tolerated. Return for fevers, new redness, warmth, rapidly worsening pain, decreasing use of your arm, new weakness, loss of sensation or other new or concerning symptoms. Prescriptions: No Action Ty-Synephrine (phenylephrine) 0.25 % spray,non-aerosol 1 spray NASAL Q4-6H PRNRF: 0 Afrin (oxymetazoline) 0.05 % mist 1 spray NASAL ONCE RF: 0 pravastatin 20 mg tablet 20 mg PO DAILY RF: 0 fluticasone propionate 50 mcg/actuation spray,suspension 1 spray NASAL BID Qty: 15.8 RF: 0 amoxicillin-pot clavulanate [Augmentin] 875-125 mg tablet 1 tab PO BID Qty: 14 RF: 0 losartan-hydrochlorothiazide 50-12.5 mg tablet 1 tab PO DAILY MDD 1 Qty: 30 RF: 0 losartan-hydrochlorothiazide 50-12.5 mg Tablet 1 tab PO QPM RF: 0 cyclobenzaprine 5 mg tablet 5 - 10 mg PO BEDTIME PRN (Reason: muscle spasm) Qty: 10 RF: 0 lidocaine 5 % adhesive patch,medicated 1 patch TOP Q24H PRN (Reason: pain) Qty: 30 RF: 0 Referrals: Vargas Diaz MD [Primary Care Provider] -
== END 2021-02-17 10:54 | disposition home or self-care (01) ==
PROVIDERS: Emergency Provider Emergency Medicine; PCP Family Medicine Sports Medicine
DX: S49.91XA Unspecified injury of right shoulder and upper arm, initial encounter (principal); W01.198A Fall on same level from slipping, tripping and stumbling with subsequent striking against other object, initial encounter
CPT/HCPCS: 73030; 99283

== ENCOUNTER 2021-05-05 10:57 | Emergency (ER) | payer MEDICARE, OTHER, SELFPAY ==
[2021-05-05] VITALS (7 sets, daily range): BP systolic 137–180; BP diastolic 76–86; PULSE 56–67; RESP 11–15; TEMP 37; O2SAT 96–99; BMI 27.8
--- NOTE | 2021-05-05 11:58 | ED.DIZZY ---
HPI - Dizziness General Chief Complaint: Dizziness Stated Complaint: woozy/unstable walking Time Seen by Provider: 05/05/21 11:13 Source: patient Mode of arrival: Ambulatory Limitations: no limitations History of Present Illness HPI Narrative: Patient is a 1-year-old male who presents with dizziness that started yesterday. He said he was working out in the [place] we started feeling dizzy and lightheaded. He decided to come inside he felt a little unstable on his feet he took an aspirin his symptoms improved. He denies any chest pain palpitations weakness numbness tingling. He is overall feeling significantly better today but wanted to be checked out. MD complaint: dizziness Timing: sudden onset Description: room spinning and off-balance History of similar episodes: No History of trauma: No Exacerbating factors: movement and position Related Data Home Medications Medication Instructions Recorded Confirmed losartan-hydrochlorothiazide 1 tab PO QPM 01/28/19 09/14/19 pravastatin 20 mg PO DAILY 09/14/19 09/14/19 oxymetazoline 0.05 % nasal mist 1 spray NASAL ONCE 07/22/20 07/22/20 phenylephrine HCl 0.25 % nasal 1 spray NASAL Q4-6H PRN 07/22/20 07/22/20 spray Previous Rx's Medication Instructions Recorded cyclobenzaprine 5 - 10 mg PO BEDTIME PRN #10 tab 07/04/20 lidocaine 1 patch TOP Q24H PRN #30 each 07/04/20 amoxicillin-pot clavulanate 1 tab PO BID #14 tab 09/01/20 [Augmentin] fluticasone propionate 1 spray NASAL BID #15.8 ml 09/01/20 losartan-hydrochlorothiazide 1 tab PO DAILY #30 tab MDD 1 09/01/20 Allergies Allergy/AdvReac Type Severity Reaction Status Date / Time No Known Drug Allergies Allergy Verified 05/05/21 11:06 Review of Systems Review of Systems ROS Unobtainable: All systems reviewed & are unremarkable except as noted in HPI and below Constitutional Constitutional: Denies chills, Denies fever(s), Denies lethargy and Denies weakness Cardiovascular Cardiovascular: Reports as per HPI, Denies chest pain, Denies irregular heart rhythm, Reports lightheadedness, Denies palpitations, Denies dyspnea, Denies dyspnea on exertion and Denies orthopnea Respiratory Respiratory: Denies cough, Denies dyspnea, Denies dyspnea on exertion and Denies wheezing Gastrointestinal Gastrointestinal: Denies abdominal pain, Denies change in bowel habits, Denies diarrhea, Denies nausea and Denies vomiting Musculoskeletal Musculoskeletal: Denies back pain and Denies myalgias Integumentary/Breasts Skin/Breast: Denies pruritus, Denies erythema, Denies rash and Denies wounds Neurologic Neurologic: Denies weakness Endocrine Endocrine: Denies palpitations Allergic/Immunologic Allergic/Immunologic: Denies wheezing Patient History Medical History Healthy adult Hyperlipidemia Hypertension Prostate cancer Renal cell carcinoma Surgical History H/O kidney removal Social History Smoking Status: Never smoker Smoking Status: Never smoker alcohol intake frequency: 0-2 drinks per day Substance Use Type: does not use Exam Initial Vital Signs Initial Vital Signs: Vital Signs Temperature 98.6 F 05/05/21 11:00 Pulse Rate 67 05/05/21 11:00 Respiratory Rate 15 05/05/21 11:00 Blood Pressure 180/86 H 05/05/21 11:00 Pulse Oximetry 98 05/05/21 11:00 GENERAL: Alert pleasant well-appearing 81-year-old male and in [no acute] distress. HEENT: Head atraumatic,EOMI, pupils reactive, face symmetric, [moist] mucous membranes [EARS:] [Tympanic membranes visualized, no erythema or bulging, no hemotympanum] CARDIOVASCULAR: Regular rate and rhythm without murmurs, rubs or gallops. RESPIRATORY: Breath sounds equal bilaterally, no wheezes rales or rhonchi. ABDOMEN: Soft, nontender. Normoactive bowel sounds all 4 quadrants. No guarding or rebound. EXTREMITIES: Normal range of motion, no clubbing or edema. Neurovascularly intact NEUROLOGICAL: Alert and oriented x4.Normal gait and speech. Cranial nerves II through XII grossly intact. [Good [id number], good [id number], strength equal bilaterally, no dysarthria or aphasia, sensation in tact to soft touch bilaterally, no visual changes, no facial droop] SKIN: Warm, dry, no laceration, no petechiae, no rashes or lesions. Scores NIH Stroke Scale Level of Conciousness: Alert, keenly responsive Ask month/age: Answers both questions correctly. Open/close eyes, close hand: Performs both tasks correctly Best gaze horizontal: Normal Visual rivera: No visual loss Facial palsy: Normal symetrical movement Left arm drift: No drift for full 10 sec Right arm drift: No drift for full 10 sec Left leg drift: No drift for full 5 sec Right leg drift: No drift for full 5 sec Limb ataxia: Absent Sensory on face/arms/legs: Normal, no sensory loss Best language: No aphasia, normal Dysarthria: Normal Extinction or inattention: No abnormality Total NIH Stroke scale score: 0 Course Orders Ordered: ED Orders 05/05/21 11:20 Complete Blood Count AUTO DIFF Stat Comprehensive Metabolic Panel Stat Troponin & CK Cardiac Panel Stat Vital Signs Vital signs: Vital Signs - 8 hr 05/05/21 11:30 05/05/21 11:31 05/05/21 12:00 Pulse Rate 56 L 57 L 60 Respiratory Rate 11 L 13 13 Blood Pressure 137/76 157/81 H Pulse Oximetry 97 99 98 05/05/21 12:30 05/05/21 13:00 Pulse Rate 64 58 L Respiratory Rate 15 14 Blood Pressure Pulse Oximetry 96 96 MDM - Dizziness Lab Data Result diagrams: 05/05/21 11:20 05/05/21 11:20 Labs: Lab Results 05/05/21 05/05/21 Range/Units 11:20 11:20 WBC 6.7 (4.5-11.0) X10^3/uL RBC 4.20 L (4.5-5.9) X10^6/uL Hgb 13.2 L (13.5-17.5) g/dL Hct 39.2 L (41-53) % MCV 93.3 (80-100) fL MCH 31.5 (26-34) PG MCHC 33.8 (30-36) % RDW 13.0 (11.6-14.8) % Plt Count 224 (150-400) X10^3/uL Neut % (Auto) 62.4 (50-75) % Lymph % (Auto) 20.3 L (25-40) % [place] % (Auto) 7.8 (3-14) % Eos % (Auto) 8.9 H (2-4) % Baso % (Auto) 0.6 (0-2) % Neut # (Auto) 4200 (2356-5994) /uL Lymph # (Auto) 1400 (6303-4334) /uL [place] # (Auto) 500 (0-900) /uL Eos # (Auto) 600 H (0-450) /uL Baso # (Auto) 0 (0-100) /uL Sodium 133 L (137-145) mmol/L Potassium 4.3 (3.4-5.1) mmol/L Chloride 100 (98-107) mmol/L Carbon Dioxide 28 (22-32) mmol/L BUN 15 (9-20) mg/dL Creatinine 0.90 (0.66-1.25) mg/dL Estimated GFR > 60.0 (>60) mL/min BUN/Creatinine Ratio 16.7 (6-22) Glucose 87 (80-110) mg/dL Calcium 9.6 (8.4-10.2) mg/dL Total Bilirubin 0.7 (0.2-1.3) mg/dL AST 39 (17-59) IU/L ALT 18 (<50) IU/L Alkaline Phosphatase 85 (38-126) U/L Total Creatine Kinase 83 (55-170) U/L CK-MB (CK-2) TNP CK-MB (CK-2) Rel Index TNP Troponin I < 0.012 (0.01-0.034) ng/mL Total Protein 7.0 (6.3-8.2) g/dL Albumin 3.7 (3.5-5.0) g/dL Globulin 3.3 (1.7-4.1) g/dL Albumin/Globulin Ratio 1.1 (1.0-2.8) ECG Data Attestation: I personally reviewed and interpreted this ECG as follows: Interpretation: Normal sinus rhythm rate 63 p.r. interval 174 QRS 116 QTC [address] elevation in leads 2 not concerning for MS similar to previous EKG in 2019 no T-wave inversions no ST depression MDM Narrative Medical decision making narrative: Patient's symptoms have completely resolved today. He does not have any dizziness or lightheadedness his symptoms lasted for a short time yesterday after working in the [employer]. At this time it may be related to some mild dehydration all slight vertigo. He certainly does not have any symptoms of stroke. At this time recommend outpatient follow-up patient is completely asymptomatic at this time. Discharge Plan Departure Patient Disposition: Home Clinical Impression: Benign paroxysmal positional vertigo Qualifiers: Laterality: unspecified laterality Qualified Code(s): H81.10 - Benign paroxysmal vertigo, unspecified ear Instructions: DI for Vertigo Activity Restrictions/Additional Instructions: *You have been diagnosed with vertigo *What to do: At this time your symptoms have improved completely blood work is overall reassuring. Recommend following up with your primary care provider *Continue to take medications as directed *Follow up with your primary care provider in 2-3 days *Return to ER if you should have worsening dizziness, falling, weakness numbness tingling speech difficulty balance issues or any new, worsening or concerning symptoms Prescriptions: No Action Ty-Synephrine (phenylephrine) 0.25 % spray,non-aerosol 1 spray NASAL Q4-6H PRNRF: 0 Afrin (oxymetazoline) 0.05 % mist 1 spray NASAL ONCE RF: 0 pravastatin 20 mg tablet 20 mg PO DAILY RF: 0 fluticasone propionate 50 mcg/actuation spray,suspension 1 spray NASAL BID Qty: 15.8 RF: 0 amoxicillin-pot clavulanate [Augmentin] 875-125 mg tablet 1 tab PO BID Qty: 14 RF: 0 losartan-hydrochlorothiazide 50-12.5 mg tablet 1 tab PO DAILY MDD 1 Qty: 30 RF: 0 losartan-hydrochlorothiazide 50-12.5 mg Tablet 1 tab PO QPM RF: 0 cyclobenzaprine 5 mg tablet 5 - 10 mg PO BEDTIME PRN (Reason: muscle spasm) Qty: 10 RF: 0 lidocaine 5 % adhesive patch,medicated 1 patch TOP Q24H PRN (Reason: pain) Qty: 30 RF: 0 Referrals: Vargas Diaz MD [Primary Care Provider] -
[2021-05-05 12:07] LABS: Add Manual Diff / Slide Review NO; Basophils Absolute Auto 0 /uL (0-100); Basophils Percent Auto 0.6 % (0-2); Eosinophils Absolute Auto 600 /uL (0-450); Eosinophils Percent Auto 8.9 % (2-4); Hematocrit 39.2 % (41-53); Hemoglobin 13.2 g/dL (13.5-17.5); Lymphocytes Absolute Auto 1400 /uL (1100-4500); Lymphocytes Percent Auto 20.3 % (25-40); Mean Corpuscular HGB Conc 33.8 % (30-36); Mean Corpuscular Hemoglobin 31.5 PG (26-34); Mean Corpuscular Volume 93.3 fL (80-100); Monocytes Absolute Auto 500 /uL (0-900); Monocytes Percent Auto 7.8 % (3-14); Neutrophils Absolute Auto 4200 /uL (1500-7000); Neutrophils Percent Auto 62.4 % (50-75); Platelet Count 224 X10^3/uL (150-400); White Blood Cell Count 6.7 X10^3/uL (4.5-11.0)
[2021-05-05 12:12] LABS: Alanine Aminotransferase 18 IU/L (<50); Albumin 3.7 g/dL (3.5-5.0); Albumin Globulin Ratio 1.1 (1.0-2.8); Alkaline Phosphatase 85 U/L (38-126); Aspartate Aminotransferase 39 IU/L (17-59); BUN Creatinine Ratio 16.7 (6-22); Bilirubin Total 0.7 mg/dL (0.2-1.3); Blood Urea Nitrogen 15 mg/dL (9-20); Calcium 9.6 mg/dL (8.4-10.2); Carbon Dioxide 28 mmol/L (22-32); Chloride 100 mmol/L (98-107); Creatine Kinase 83 U/L (55-170); Estimated Glomerular Filt Rate > 60.0 mL/min (>60); Globulin 3.3 g/dL (1.7-4.1); Glucose 87 mg/dL (80-110); HEMOLYSIS < 15 (0-50); Potassium 4.3 mmol/L (3.4-5.1); Sodium 133 mmol/L (137-145)
[2021-05-05 12:23] LABS: Troponin I < 0.012 ng/mL (0.01-0.034)
--- NOTE | 2021-05-05 12:32 | PC.NURSE ---
Dizzyness and difficulty walking lasted yesterday from 1600 until sleep around 2200, completely resolved upon waking.
== END 2021-05-05 13:24 | disposition home or self-care (01) ==
PROVIDERS: Emergency Provider Emergency Medicine; PCP Family Medicine Sports Medicine
DX: H81.10 Benign paroxysmal vertigo, unspecified ear (principal)
CPT/HCPCS: 36415; 80053; 82550; 84484; 85025; 93005; 99283; 99284

== ENCOUNTER 2022-03-29 08:15 | Emergency (ER) | payer MEDICARE, OTHER, SELFPAY ==
[2022-03-29] VITALS (12 sets, daily range): BP systolic 124–155; BP diastolic 67–102; PULSE 57–68; RESP 9–25; TEMP 36.6; O2SAT 94–99; BMI 27.8
--- NOTE | 2022-03-29 08:35 | DI.RAD.S_ITS ---
PROCEDURE: XR CHEST 1V INDICATIONS: chest pain TECHNIQUE: One view of the chest was acquired. COMPARISON: [facility], CR, XR CHEST 1V, 01/28/2019, 11:29. FINDINGS: Surgical changes and devices: None. Lungs and pleura: Lungs are clear. No pleural effusions or pneumothorax. Mediastinum: Mediastinal contours appear normal. Heart size is normal. Bones and chest wall: No suspicious bony lesions. Overlying soft tissues appear unremarkable. IMPRESSION: No evidence acute pulmonary process. Dictated by: Anson Thomson M.D. on 03/29/2022 at 9:02 Approved by: Anson Thomson M.D. on 03/29/2022 at 9:02
[2022-03-29 08:50] LABS: Add Manual Diff / Slide Review NO; Basophils Absolute Auto 0 /uL (0-100); Basophils Percent Auto 0.5 % (0-2); Eosinophils Absolute Auto 400 /uL (0-450); Eosinophils Percent Auto 5.4 % (2-4); Hematocrit 40.6 % (41-53); Hemoglobin 14.1 g/dL (13.5-17.5); Lymphocytes Absolute Auto 1400 /uL (1100-4500); Lymphocytes Percent Auto 17.8 % (25-40); Mean Corpuscular HGB Conc 34.7 % (30-36); Mean Corpuscular Volume 92.2 fL (80-100); Monocytes Absolute Auto 500 /uL (0-900); Monocytes Percent Auto 6.7 % (3-14); Neutrophils Absolute Auto 5500 /uL (1500-7000); Neutrophils Percent Auto 69.6 % (50-75); Platelet Count 233 X10^3/uL (150-400); Red Cell Distribution Width 12.7 % (11.6-14.8); White Blood Cell Count 7.9 X10^3/uL (4.5-11.0)
[2022-03-29 08:57] LABS: Alanine Aminotransferase 17 IU/L (<50); Albumin 4.4 g/dL (3.5-5.0); Albumin Globulin Ratio 1.3 (1.0-2.8); Alkaline Phosphatase 88 U/L (38-126); Aspartate Aminotransferase 37 IU/L (17-59); BUN Creatinine Ratio 23.4 (6-22); Bilirubin Total 0.7 mg/dL (0.2-1.3); Blood Urea Nitrogen 22 mg/dL (9-20); Calcium 9.6 mg/dL (8.4-10.2); Carbon Dioxide 29 mmol/L (22-32); Chloride 103 mmol/L (98-107); Creatine Kinase 78 U/L (55-170); Estimated Glomerular Filt Rate > 60 mL/min (>60); Globulin 3.5 g/dL (1.7-4.1); Glucose 96 mg/dL (80-110); HEMOLYSIS < 15 (0-50); Lipase 88 U/L (23-300); Potassium 3.8 mmol/L (3.4-5.1); Sodium 139 mmol/L (137-145); Total Protein 7.9 g/dL (6.3-8.2)
[2022-03-29] MEDS: SODIUM CHLORIDE 0.9% 1,000 ML 150 ML IV (08:57)
--- NOTE | 2022-03-29 09:28 | ED.CHESTPAIN ---
HPI - Chest Pain General Chief Complaint: Chest Pain Stated Complaint: Chest pain Time Seen by Provider: 03/29/22 08:35 Source: patient Mode of arrival: Ambulatory Limitations: no limitations History of Present Illness HPI narrative: Patient is a 82-year-old male history of hypertension hyperlipidemia, prostate cancer and renal cell carcinoma presenting today with chest heaviness. He said he woke up this morning and noticed some chest heaviness. He says it is nonradiating he says he has never felt anything like this before. He has to go up and down about 12 stairs in his house he got extremely short of breath while doing this this morning. He is a never happened to him before. He denies any nausea or vomiting. He says his chest heaviness lasted for about 1 hour and has completely resolved in the emergency department. No known coronary artery disease. Related Data Home Medications Medication Instructions Recorded Confirmed losartan 50 mg-hydrochlorothiazide 1 tab PO QPM 01/28/19 09/14/19 12.5 mg tablet pravastatin 20 mg tablet 20 mg PO DAILY 09/14/19 09/14/19 oxymetazoline 0.05 % nasal mist 1 spray NASAL ONCE 07/22/20 07/22/20 (Afrin (oxymetazoline)) phenylephrine HCl 0.25 % nasal 1 spray NASAL Q4-6H PRN 07/22/20 07/22/20 spray (Ty-Synephrine (phenylephrine)) Previous Rx's Medication Instructions Recorded cyclobenzaprine 5 mg tablet 5 - 10 mg PO BEDTIME PRN #10 tab 07/04/20 lidocaine 5 % topical patch 1 patch TOP Q24H PRN #30 each 07/04/20 amoxicillin 875 mg-potassium 1 tab PO BID #14 tab 09/01/20 clavulanate 125 mg tablet (Augmentin) fluticasone propionate 50 1 spray NASAL BID #15.8 ml 09/01/20 mcg/actuation nasal spray,suspension losartan 50 mg-hydrochlorothiazide 1 tab PO DAILY #30 tab MDD 1 09/01/20 12.5 mg tablet Allergies Allergy/AdvReac Type Severity Reaction Status Date / Time No Known Drug Allergies Allergy Verified 05/05/21 11:06 Review of Systems Review of Systems Narrative: GENERAL: Denies chills, fatigue, malaise, fever, sweats, travel HEENT: Denies sinus pain, ear pain, sore throat, difficulty swallowing, neck pain RESPIRATORY: Denies dyspnea, cough, wheezing, hemoptysis, sputum. CARDIOVASCULAR: See HPI GASTROINTESTINAL: Denies nausea, vomiting, abdominal pain, diarrhea, constipation, melena. : Denies dysuria, frequency, incontinence, hematuria, urinary retention, flank pain. MUSCULOSKELETAL: Denies weakness, joint pain, or bony pain SKIN: No rash, no erythema, no pruritus NEUROLOGIC: Denies weakness, dizziness, headache, numbness, change in speech, confusion PSYCHIATRIC: No concerning psychosocial issues. 12 point review of systems is negative except for those stated above and HPI Patient History Medical History Healthy adult Hyperlipidemia Hypertension Prostate cancer Renal cell carcinoma Surgical History H/O kidney removal Social History Smoking Status: Never smoker Smoking Status: Never smoker alcohol intake frequency: 0-2 drinks per day Substance Use Type: does not use Exam Initial Vital Signs Initial Vital Signs: Vital Signs Temperature 98 F 03/29/22 08:17 Pulse Rate 63 03/29/22 08:17 Respiratory Rate 18 03/29/22 08:17 Blood Pressure 155/76 H 03/29/22 08:17 Pulse Oximetry 97 03/29/22 08:17 GENERAL: Alert very pleasant 82-year-old male and in no acute distress. HEENT: Head atraumatic,EOMI, pupils reactive, face symmetric, moist mucous membranes CARDIOVASCULAR: Regular rate and rhythm without murmurs, rubs or gallops. RESPIRATORY: Breath sounds equal bilaterally, no wheezes rales or rhonchi. ABDOMEN: Soft, nontender. Normoactive bowel sounds all 4 quadrants. No guarding or rebound. EXTREMITIES: Normal range of motion, no clubbing or edema. Neurovascularly intact NEUROLOGICAL: Alert and oriented x4.Normal gait and speech. SKIN: Warm, dry, no laceration, no petechiae, no rashes or lesions. Course Orders Ordered: ED Orders 03/29/22 10:49 Trop I [Troponin I] Stat 03/29/22 11:27 COVID19 -Nasal RAPID/Pre-Proc Stat Discontinued Medications Aspirin (Aspirin 81 Mg Chew Tab) 324 mg PO NOW ONE Stop: 03/29/22 09:29 Last Admin: 03/29/22 09:38 Dose: 324 mg Documented by: JL Heparin Sodium (Porcine) (Heparin 5,000 Unit/Ml Vial) 5,000 unit IV NOW ONE Stop: 03/29/22 11:48 Last Admin: 03/29/22 12:21 Dose: 5,000 unit Documented by: BHUMI Sodium Chloride (Normal Saline 0.9%) 1,000 mls @ 150 mls/hr IV CONT LIZA Last Admin: 03/29/22 08:57 Dose: 150 mls/hr Documented by: NICKO Heparin Sodium/Dextrose (Heparin Drip) 25,000 unit in 500 mls @ 20 mls/hr IV CONT LIZA; Protocol Last Admin: 03/29/22 12:25 Dose: 1,000 units/hr, 20 mls/hr Documented by: BHUMI Vital Signs Vital signs: Vital Signs - 8 hr 03/29/22 12:00 03/29/22 12:30 03/29/22 13:00 Pulse Rate 62 67 68 Respiratory Rate 25 H 21 Blood Pressure 129/73 124/102 H Pulse Oximetry 99 99 99 MDM - Chest Pain Lab Data Result diagrams: 03/29/22 08:25 03/29/22 08:25 Labs: Lab Results 03/29/22 03/29/22 03/29/22 Range/Units 08:25 08:25 08:25 WBC 7.9 (4.5-11.0) X10^3/uL RBC 4.40 L (4.5-5.9) X10^6/uL Hgb 14.1 (13.5-17.5) g/dL Hct 40.6 L (41-53) % MCV 92.2 (80-100) fL MCH 32.0 (26-34) PG MCHC 34.7 (30-36) % RDW 12.7 (11.6-14.8) % Plt Count 233 (150-400) X10^3/uL Neut % (Auto) 69.6 (50-75) % Lymph % (Auto) 17.8 L (25-40) % [place] % (Auto) 6.7 (3-14) % Eos % (Auto) 5.4 H (2-4) % Baso % (Auto) 0.5 (0-2) % Neut # (Auto) 5500 (1230-0708) /uL Lymph # (Auto) 1400 (0971-1810) /uL [place] # (Auto) 500 (0-900) /uL Eos # (Auto) 400 (0-450) /uL Baso # (Auto) 0 (0-100) /uL PT 11.2 (10.1-12.7) SECONDS INR 1.0 (0.9-1.3) APTT 29 (26.4-36.2) SECONDS Sodium 139 (137-145) mmol/L Potassium 3.8 (3.4-5.1) mmol/L Chloride 103 (98-107) mmol/L Carbon Dioxide 29 (22-32) mmol/L BUN 22 H (9-20) mg/dL Creatinine 0.94 (0.66-1.25) mg/dL Estimated GFR > 60 (>60) mL/min BUN/Creatinine Ratio 23.4 H (6-22) Glucose 96 (80-110) mg/dL Calcium 9.6 (8.4-10.2) mg/dL Total Bilirubin 0.7 (0.2-1.3) mg/dL AST 37 (17-59) IU/L ALT 17 (<50) IU/L Alkaline Phosphatase 88 (38-126) U/L Total Creatine Kinase 78 (55-170) U/L CK-MB (CK-2) TNP CK-MB (CK-2) Rel Index TNP Troponin I 0.070 H (0.01-0.034) ng/mL Total Protein 7.9 (6.3-8.2) g/dL Albumin 4.4 (3.5-5.0) g/dL Globulin 3.5 (1.7-4.1) g/dL Albumin/Globulin Ratio 1.3 (1.0-2.8) Lipase 88 (23-300) U/L SARS-CoV-2 (PCR) (Negative) 03/29/22 03/29/22 Range/Units 10:49 11:27 WBC (4.5-11.0) X10^3/uL RBC (4.5-5.9) X10^6/uL Hgb (13.5-17.5) g/dL Hct (41-53) % MCV (80-100) fL MCH (26-34) PG MCHC (30-36) % RDW (11.6-14.8) % Plt Count (150-400) X10^3/uL Neut % (Auto) (50-75) % Lymph % (Auto) (25-40) % [place] % (Auto) (3-14) % Eos % (Auto) (2-4) % Baso % (Auto) (0-2) % Neut # (Auto) (6762-2727) /uL Lymph # (Auto) (7345-7410) /uL [place] # (Auto) (0-900) /uL Eos # (Auto) (0-450) /uL Baso # (Auto) (0-100) /uL PT (10.1-12.7) SECONDS INR (0.9-1.3) APTT (26.4-36.2) SECONDS Sodium (137-145) mmol/L Potassium (3.4-5.1) mmol/L Chloride (98-107) mmol/L Carbon Dioxide (22-32) mmol/L BUN (9-20) mg/dL Creatinine (0.66-1.25) mg/dL Estimated GFR (>60) mL/min BUN/Creatinine Ratio (6-22) Glucose (80-110) mg/dL Calcium (8.4-10.2) mg/dL Total Bilirubin (0.2-1.3) mg/dL AST (17-59) IU/L ALT (<50) IU/L Alkaline Phosphatase (38-126) U/L Total Creatine Kinase (55-170) U/L CK-MB (CK-2) CK-MB (CK-2) Rel Index Troponin I 0.832 H* (0.01-0.034) ng/mL Total Protein (6.3-8.2) g/dL Albumin (3.5-5.0) g/dL Globulin (1.7-4.1) g/dL Albumin/Globulin Ratio (1.0-2.8) Lipase (23-300) U/L SARS-CoV-2 (PCR) Negative (Negative) Imaging Data Chest x-ray: Radiologist's Impression: XRay Report Signed Patient: Mushtaq Casper MR#: [id number] : 1940 Acct:[id number] Age/Sex: 82 / M Date of Service: 03/29/22 Loc: ED Accession Number: [id number] ?? Procedure: XR chest 1V Ordering Provider: Rachel Muñoz D.O. PROCEDURE:? XR CHEST 1V ? INDICATIONS:? chest pain ? TECHNIQUE:? One view of the chest was acquired.? ? COMPARISON:? Located [facility], CR, XR CHEST 1V, 01/28/2019, 11:29. ? FINDINGS:? ? Surgical changes and devices:? None.? ? Lungs and pleura:? Lungs are clear.? No pleural effusions or pneumothorax.? ? Mediastinum:? Mediastinal contours appear normal.? Heart size is normal.? ? Bones and chest wall:? No suspicious bony lesions.? Overlying soft tissues appear unremarkable.? ? IMPRESSION:? No evidence acute pulmonary process. ? ? ? Dictated by: Anson Thomson M.D. on 03/29/2022 at 9:02 ? ? Approved by: Anson Thomson M.D. on 03/29/2022 at 9:02 ? ECG Data Interpretation: EKG 1. Normal sinus rhythm rate 64 AK interval 202 QRS 116 QTC 453 Q-waves noted in inferior leads is T-wave inversion noted in V1 slightly more pronounced than previous ST got pressure peraza noted in V5 ST elevation in inferior leads is similar to previous EKG in 2020 EKG 2. Sinus rhythm rate 64 similar to previous EKG no changes o MDM Narrative Medical decision making narrative: Patient presents with symptoms concerning for cardiac disease. Minimal EKG changes initial troponin 0.07 his however 2 hour repeat is in the positive range at 0.8. Patient has received aspirin and started on heparin drip. Patient remains chest pain-free in the emergency department. 1150 Dr. Wallace, cardiology has been consult in regards to patient's symptoms and test results. Recommends transfer to [facility] for a cardiac catheterization. Dr. Us hospitalist at [facility] accepts patient for transfer. Discharge Plan Departure Patient Disposition: [facility] Clinical Impression: Non-ST elevation [place] (NSTEMI) Prescriptions: No Action Ty-Synephrine (phenylephrine) 0.25 % spray,non-aerosol 1 spray NASAL Q4-6H PRN0RF Afrin (oxymetazoline) 0.05 % mist 1 spray NASAL ONCE 0RF pravastatin 20 mg tablet 20 mg PO DAILY 0RF Label Comments: TAKE 1 TABLET BY MOUTH ONCE DAILY fluticasone propionate 50 mcg/actuation spray,suspension 1 spray NASAL BID Qty: 15.8 0RF Rx Instructions: administer into each nostril amoxicillin-pot clavulanate [Augmentin] 875-125 mg tablet 1 tab PO BID Qty: 14 0RF losartan-hydrochlorothiazide 50-12.5 mg tablet 1 tab PO DAILY MDD 1 Qty: 30 0RF losartan-hydrochlorothiazide 50-12.5 mg Tablet 1 tab PO QPM 0RF cyclobenzaprine 5 mg tablet 5 - 10 mg PO BEDTIME PRN (Reason: muscle spasm) Qty: 10 0RF lidocaine 5 % adhesive patch,medicated 1 patch TOP Q24H PRN (Reason: pain) Qty: 30 0RF Rx Instructions: leave on most painful area for up to 12 hrs Referrals: Vargas Diaz MD [Primary Care Provider] -
[2022-03-29] MEDS: ASPIRIN 81 MG CHEW TAB 324 MG PO (09:38)
[2022-03-29 11:42] LABS: Troponin I 0.832 ng/mL (0.01-0.034)
[2022-03-29 11:46] LABS: COVID19 -Nasal RAPID Negative (Negative)
[2022-03-29] MEDS: HEPARIN 5,000 UNIT/ML VIAL 5000 UNIT IV (12:21)
[2022-03-29] MEDS: HEPARIN DRIP 25,000 UNIT/500 ML IV.SOLN 20 UNIT IV (12:25)
[2022-03-29 12:31] LABS: Prothrombin Time 11.2 SECONDS (10.1-12.7)
[2022-03-29 12:33] LABS: PTT Partial Thromboplastin Tim 29 SECONDS (26.4-36.2)
== END 2022-03-29 13:18 | disposition short-term general hospital (02) ==
PROVIDERS: Emergency Provider Emergency Medicine; PCP Family Medicine Sports Medicine
DX: I21.4 Non-ST elevation (NSTEMI) myocardial infarction (principal); I10 Essential (primary) hypertension; Z20.822 Contact with and (suspected) exposure to COVID-19
CPT/HCPCS: 36415; 71045; 80053; 82550; 83690; 84484; 85025; 85610; 85730; 87635; 93005; 93010; 96374; 99284; C9803; J1644

== ENCOUNTER → 2022-10-26 10:32 | Outpatient (CLI) | payer MEDICARE, OTHER, SELFPAY ==
[2022-10-26 12:39] LABS: Prostate Specific Antigen 0.968 ng/mL (0.10-4.00)
== END ==
PROVIDERS: PCP Family Medicine Sports Medicine; Referring Provider Nurse Practitioner; Visit Provider Nurse Practitioner
DX: C61 Malignant neoplasm of prostate (principal)
CPT/HCPCS: 36415; 84153

== ENCOUNTER 2022-11-15 10:25 | Emergency (ER) | payer MEDICARE, OTHER, SELFPAY ==
[2022-11-15 10:39] VITALS: BP 150/70; PULSE 63; RESP 15; TEMP 36.4; O2SAT 97; BMI 27.1
[2022-11-15 11:18] LABS: Prothrombin Time 11.3 SECONDS (10.1-12.7)
[2022-11-15 11:21] LABS: Add Manual Diff / Slide Review NO; Basophils Absolute Auto 0 /uL (0-100); Basophils Percent Auto 0.9 % (0-2); Eosinophils Absolute Auto 400 /uL (0-450); Eosinophils Percent Auto 6.8 % (2-4); Hematocrit 40.8 % (41-53); Hemoglobin 13.6 g/dL (13.5-17.5); Lymphocytes Absolute Auto 1400 /uL (1100-4500); Lymphocytes Percent Auto 24.1 % (25-40); Mean Corpuscular HGB Conc 33.4 % (30-36); Mean Corpuscular Volume 92.8 fL (80-100); Monocytes Absolute Auto 500 /uL (0-900); Monocytes Percent Auto 7.9 % (3-14); Neutrophils Absolute Auto 3400 /uL (1500-7000); Neutrophils Percent Auto 60.3 % (50-75); Platelet Count 249 X10^3/uL (150-400); Red Blood Cell Count 4.39 X10^6/uL (4.5-5.9); Red Cell Distribution Width 12.7 % (11.6-14.8); White Blood Cell Count 5.7 X10^3/uL (4.5-11.0)
[2022-11-15 11:24] LABS: Alanine Aminotransferase 24 IU/L (<50); Albumin 4.1 g/dL (3.5-5.0); Albumin Globulin Ratio 1.2 (1.0-2.8); Alkaline Phosphatase 84 U/L (38-126); Aspartate Aminotransferase 29 IU/L (17-59); BUN Creatinine Ratio 24.5 (6-22); Bilirubin Total 0.6 mg/dL (0.2-1.3); Blood Urea Nitrogen 26 mg/dL (9-20); Calcium 9.2 mg/dL (8.4-10.2); Carbon Dioxide 33 mmol/L (22-32); Chloride 95 mmol/L (98-107); Estimated Glomerular Filt Rate > 60 mL/min (>60); Globulin 3.3 g/dL (1.7-4.1); Glucose 89 mg/dL (80-110); HEMOLYSIS < 15 (0-50); Lipase 75 U/L (23-300); Potassium 4.7 mmol/L (3.4-5.1); Sodium 134 mmol/L (137-145); Total Protein 7.4 g/dL (6.3-8.2)
--- NOTE | 2022-11-15 14:50 | ED.ABDPAIN ---
HPI - Abdominal Pain General Chief Complaint: Abdominal Pain Stated Complaint: sharp abd pain rt side/lower back pain Time Seen by Provider: 11/15/22 13:25 Source: patient Mode of arrival: Ambulatory Limitations: no limitations History of Present Illness HPI narrative: Pleasant 82-year-old male with history of [place] in March of 2022 with cardiac stents, left renal nephrectomy for renal cell carcinoma in 2006 and prostatectomy in 2016 after radiation for prostate cancer. Patient does take a blood thinner. Who comes with complaint of right lower quadrant abdominal pain that has been off for at least a year he states 2 nights ago was really intense and knife-like and he almost came to the emergency department. States it has been persistent in the last 2 days but not to the same intensity. He noticed a lump a couple weeks ago that went away in that area. Describes pain sort of in the right inguinal region. He denies any flank or intra abdominal pain. He states no rash, erythema or ecchymosis. Patient has not had any fevers or chills, no nausea or vomiting, no diarrhea constipation. He states he is stooling regularly. He urinates about hourly but he states that is normal since he had his prostatectomy. Denies flank pain. He denies surgeries besides cardiac stents, left nephrectomy in 2006 prostatectomy in 2016. No tobacco, no alcohol, no illicit. Related Data Home Medications Medication Instructions Recorded Confirmed losartan 50 mg-hydrochlorothiazide 1 tab PO QPM 01/28/19 09/14/19 12.5 mg tablet pravastatin 20 mg tablet 20 mg PO DAILY 09/14/19 09/14/19 oxymetazoline 0.05 % nasal mist 1 spray intranasal ONCE 07/22/20 07/22/20 (Afrin (oxymetazoline)) phenylephrine HCl 0.25 % nasal 1 spray intranasal Q4-6H PRN 07/22/20 07/22/20 spray (Ty-Synephrine (phenylephrine)) Previous Rx's Medication Instructions Recorded cyclobenzaprine 5 mg tablet 5 - 10 mg PO BEDTIME PRN muscle 07/04/20 spasm #10 tabs lidocaine 5 % topical patch 1 patch topical Q24H PRN pain #30 07/04/20 ea amoxicillin 875 mg-potassium 1 tab PO BID bacterial sinusitis 09/01/20 clavulanate 125 mg tablet #14 tabs (Augmentin) fluticasone propionate 50 1 spray intranasal BID chronic 09/01/20 mcg/actuation nasal sinusitis #15.8 mL spray,suspension losartan 50 mg-hydrochlorothiazide 1 tab PO DAILY #30 tabs 09/01/20 12.5 mg tablet Allergies Allergy/AdvReac Type Severity Reaction Status Date / Time No Known Drug Allergies Allergy Verified 11/15/22 10:39 Review of Systems Review of Systems ROS Unobtainable: All systems reviewed & are unremarkable except as noted in HPI and below Patient History Medical History Healthy adult Hyperlipidemia Hypertension Prostate cancer Renal cell carcinoma Surgical History H/O kidney removal Social History Smoking Status: Never smoker Smoking Status: Never smoker alcohol intake frequency: holidays/special occasions only Substance Use Type: does not use Exam Narrative Exam Narrative: GENERAL: Alert and oriented x three, well-nourished elderly male in mild distress. HEENT: Head normocephalic, atraumatic, EOMI, pupils reactive, face symmetric, moist mucous membranes NECK: Supple, full range of motion CARDIOVASCULAR: Regular rate and rhythm without murmurs, rubs or gallops. RESPIRATORY: Breath sounds equal bilaterally, no wheezes rales or rhonchi. ABDOMEN: Soft, nontender. Normoactive bowel sounds all 4 quadrants. No guarding or rebound, rigidity, patient has small nodular mass in the right lower quadrant but over the right inguinal ligament, not easily reducible but is only about a cm in size and a little bit more lateral than I would expect for hernia could possibly be lymph nodes. Areas nontender. No warmth, erythema or skin changes. No visualized lumps. Patient has 2+ femoral pulse on the right. : No CVA tenderness EXTREMITIES: Normal range of motion, no clubbing or edema. Neurovascularly intact NEUROLOGICAL: Cranial nerves II through XII grossly intact. Moving all extremities SKIN: Warm, dry, no petechiae, no rashes or lesions. Initial Vital Signs Initial Vital Signs: Vital Signs Temperature 97.6 F 11/15/22 10:39 Pulse Rate 63 11/15/22 10:39 Respiratory Rate 15 11/15/22 10:39 Blood Pressure 150/70 H 12/22/22 10:39 Pulse Oximetry 97 11/15/22 10:39 Oxygen Delivery Method 11/15/22 10:39 Course Orders Ordered: ED Orders 11/15/22 10:41 EKG-12 Lead Stat 11/15/22 10:44 Complete Blood Count AUTO DIFF Stat Comprehensive Metabolic Panel Stat Lipase Stat Prothrombin Time INR Stat 11/15/22 14:55 CT kidney ureter bladder (KUB) Stat Vital Signs Vital signs: Vital Signs - 8 hr 11/15/22 10:39 Temperature 97.6 F Pulse Rate 63 Respiratory Rate 15 Blood Pressure 150/70 H Pulse Oximetry 97 Oxygen Delivery Method Room Air MDM - Abdominal Pain Lab Data Result diagrams: 11/15/22 10:44 11/15/22 10:44 Labs: Lab Results 11/15/22 11/15/22 11/15/22 Range/Units 10:44 10:44 10:44 WBC 5.7 (4.5-11.0) X10^3/uL RBC 4.39 L (4.5-5.9) X10^6/uL Hgb 13.6 (13.5-17.5) g/dL Hct 40.8 L (41-53) % MCV 92.8 (80-100) fL MCH 31.0 (26-34) PG MCHC 33.4 (30-36) % RDW 12.7 (11.6-14.8) % Plt Count 249 (150-400) X10^3/uL Neut % (Auto) 60.3 (50-75) % Lymph % (Auto) 24.1 L (25-40) % [place] % (Auto) 7.9 (3-14) % Eos % (Auto) 6.8 H (2-4) % Baso % (Auto) 0.9 (0-2) % Neut # (Auto) 3400 (4260-1780) /uL Lymph # (Auto) 1400 (9501-6905) /uL [place] # (Auto) 500 (0-900) /uL Eos # (Auto) 400 (0-450) /uL Baso # (Auto) 0 (0-100) /uL PT 11.3 (10.1-12.7) SECONDS INR 1.0 (0.9-1.3) Sodium 134 L (137-145) mmol/L Potassium 4.7 (3.4-5.1) mmol/L Chloride 95 L (98-107) mmol/L Carbon Dioxide 33 H (22-32) mmol/L BUN 26 H (9-20) mg/dL Creatinine 1.06 (0.66-1.25) mg/dL Estimated GFR > 60 (>60) mL/min BUN/Creatinine Ratio 24.5 H (6-22) Glucose 89 (80-110) mg/dL Calcium 9.2 (8.4-10.2) mg/dL Total Bilirubin 0.6 (0.2-1.3) mg/dL AST 29 (17-59) IU/L ALT 24 (<50) IU/L Alkaline Phosphatase 84 (38-126) U/L Total Protein 7.4 (6.3-8.2) g/dL Albumin 4.1 (3.5-5.0) g/dL Globulin 3.3 (1.7-4.1) g/dL Albumin/Globulin Ratio 1.2 (1.0-2.8) Lipase 75 (23-300) U/L Point of care testing: Urine Dip Bedside Urine Glucose Negative Bedside Urine Bilirubin - Negative Bedside Urine Ketone - Negative Urine Specific [place] 1.010 Bedside Urine Occult Blood - Negative Bedside Urine pH 7 Bedside Urine Protein - Negative Bedside Urine Urobilinogen - Negative Bedside Urine Nitrite - Negative Bedside Urine Leukocytes - Negative Esterase Imaging Data CT scan - abdomen/pelvis: Radiologist's Impression: [place] [address] CT Scan Report Signed Patient: Mushtaq Casper MR#: [id number] : 1940 Acct:[id number] Age/Sex: 82 / M Date of Service: 11/15/22 Loc: ED Accession Number: [id number] ?? Procedure: CT kidney ureter bladder (KUB) Ordering Provider: Aliyah Cabrales D.O. PROCEDURE:? CT KIDNEY URETER BLADDER (KUB) ? INDICATIONS:? RLQ pain, small nodular swelling right groin, hernia v lymph ? TECHNIQUE:? Axial sections were acquired from the lung bases to the pubic symphysis.? Coronal and sagittal reformats were performed.? For radiation dose reduction, the following was used: ?automated exposure control, adjustment of mA and/or kV according to patient size.? ? COMPARISON:? [facility], US, US RENAL COMPLETE, 08/31/2020, 13:39. ? FINDINGS:? Image quality:? Adequate.? ? Lung bases:? No pleural effusion.? Small cystic structure adjacent to the right atrium, likely small pericardial cyst. ? URINARY: Prior left nephrectomy.? No definite masses in the nephrectomy bed.? No right-sided urinary stone or right hydroureteronephrosis.? No bladder stones visualized. ABDOMEN: Liver:? Few small hypodensities present which are too small to characterize, could represent cysts or hemangiomata but are nonspecific. Gallbladder:? Unremarkable.? ? Biliary ducts:? Unremarkable.? ? Pancreas:? Unremarkable.? ? Spleen:? Unremarkable.? ? Adrenal Glands:? Left adrenal gland not well visualized.? Right adrenal gland appears unremarkable. ? Stomach and Bowel:? No bowel obstruction.? No evidence of acute appendicitis. Peritoneum:? No free air or substantial free fluid. ? Ventral Wall:? Small fat containing periumbilical hernia. Abdominal Nodes:? No enlarged retroperitoneal or mesenteric lymph nodes.? Vessels:? Aorta and inferior vena cava are normal in size.? ? PELVIS: Pelvic Organs:? Prior prostatectomy. Pelvic Nodes: Unremarkable. Miscellaneous:? Possible small fat containing right inguinal hernia versus fat adjacent to the spermatic cord.? Intramuscular lipomas present in the proximal thigh musculature bilaterally. ? Bones:? Multilevel degenerative change of the visualized spine. ? IMPRESSION:? ? 1. Prior left nephrectomy and prostatectomy. 2. No right-sided urinary stone or hydroureteronephrosis. 3. No right groin adenopathy visualized.? Possible tiny fat containing right inguinal hernia versus fat adjacent to the spermatic cord.? Dictated by: Pedro Luis Ridley M.D. on 11/15/2022 at 15:32 ? ? Approved by: Pedro Luis Ridley M.D. on 11/15/2022 at 15:49?? ECG Data Attestation: I personally reviewed and interpreted this ECG as follows: Interpretation: Sinus rhythm first-degree AV block, RBBB rate of 67 GA 218 QRS of 132 and QTC of 479. MDM Narrative Medical decision making narrative: This is an 82-year-old male comes with complaint of right lower quadrant abdominal pain, patient on exam has small nodular mass could possibly be a lymph node, labs otherwise appear pretty appropriate. Because the patient's prior left nephrectomy patient's GFR adequate but held off on contrast. Patient does not have any right groin adenopathy does have a possible tiny fat containing right inguinal hernia which is likely cause of patient's discomfort and what I am palpating on exam. No obstructive signs. Discussed with patient if for habitus can follow up with General surgery and return precautions. Discharge Plan Departure Patient Disposition: Home Clinical Impression: Hernia, inguinal, right Instructions: DI for Groin Hernia Activity Restrictions/Additional Instructions: You have a tiny fat containing right inguinal hernia imaging today. This does not require repair but if persistently painful or continuing to cause issues please follow-up with General surgery to discuss surgical repair. Referral is included below. Avoid lifting heavy objects. Please return for rapidly worsening symptoms, lumps or bumps that are persistently out that will not reduce or go back inside after rest or pushing on them, persistent vomiting, if you are not having any bowel movements or passing gas or farting, new skin changes such as redness, bruising, new or worsening abdominal or back pain or you were concerning symptoms. Prescriptions: No Action Ty-Synephrine (phenylephrine) 0.25 % spray,non-aerosol 1 spray NASAL Q4-6H PRN Afrin (oxymetazoline) 0.05 % mist 1 spray NASAL ONCE pravastatin 20 mg tablet 20 mg PO DAILY Label Comments: TAKE 1 TABLET BY MOUTH ONCE DAILY fluticasone propionate 50 mcg/actuation spray,suspension 1 spray NASAL BID Qty: 15.8 0RF Rx Instructions: administer into each nostril amoxicillin-pot clavulanate [Augmentin] 875-125 mg tablet 1 tab PO BID Qty: 14 0RF losartan-hydrochlorothiazide 50-12.5 mg tablet 1 tab PO DAILY MDD 1 Qty: 30 0RF losartan-hydrochlorothiazide 50-12.5 mg Tablet 1 tab PO QPM cyclobenzaprine 5 mg tablet 5 - 10 mg PO BEDTIME PRN (Reason: muscle spasm) Qty: 10 0RF lidocaine 5 % adhesive patch,medicated 1 patch TOP Q24H PRN (Reason: pain) Qty: 30 0RF Rx Instructions: leave on most painful area for up to 12 hrs Referrals: Keri Humphries MD [Physician] - Vargas Diaz MD [Primary Care Provider] - Visit Report Forms: Patient Portal/API
--- NOTE | 2022-11-15 14:55 | DI.CT.S_ITS ---
PROCEDURE: CT KIDNEY URETER BLADDER (KUB) INDICATIONS: RLQ pain, small nodular swelling right groin, hernia v lymph TECHNIQUE: Axial sections were acquired from the lung bases to the pubic symphysis. Coronal and sagittal reformats were performed. For radiation dose reduction, the following was used: automated exposure control, adjustment of mA and/or kV according to patient size. COMPARISON: [facility], US, US RENAL COMPLETE, 08/31/2020, 13:39. FINDINGS: Image quality: Adequate. Lung bases: No pleural effusion. Small cystic structure adjacent to the right atrium, likely small pericardial cyst. URINARY: Prior left nephrectomy. No definite masses in the nephrectomy bed. No right-sided urinary stone or right hydroureteronephrosis. No bladder stones visualized. ABDOMEN: Liver: Few small hypodensities present which are too small to characterize, could represent cysts or hemangiomata but are nonspecific. Gallbladder: Unremarkable. Biliary ducts: Unremarkable. Pancreas: Unremarkable. Spleen: Unremarkable. Adrenal Glands: Left adrenal gland not well visualized. Right adrenal gland appears unremarkable. Stomach and Bowel: No bowel obstruction. No evidence of acute appendicitis. Peritoneum: No free air or substantial free fluid. Ventral Wall: Small fat containing periumbilical hernia. Abdominal Nodes: No enlarged retroperitoneal or mesenteric lymph nodes. Vessels: Aorta and inferior vena cava are normal in size. PELVIS: Pelvic Organs: Prior prostatectomy. Pelvic Nodes: Unremarkable. Miscellaneous: Possible small fat containing right inguinal hernia versus fat adjacent to the spermatic cord. Intramuscular lipomas present in the proximal thigh musculature bilaterally. Bones: Multilevel degenerative change of the visualized spine. IMPRESSION: 1. Prior left nephrectomy and prostatectomy. 2. No right-sided urinary stone or hydroureteronephrosis. 3. No right groin adenopathy visualized. Possible tiny fat containing right inguinal hernia versus fat adjacent to the spermatic cord. Dictated by: Pedro Luis Ridley M.D. on 11/15/2022 at 15:32 Approved by: Pedro Luis Ridley M.D. on 11/15/2022 at 15:49
[2022-11-15 16:08] VITALS: BP 155/72; PULSE 62; RESP 18; O2SAT 98
== END 2022-11-15 16:11 | disposition home or self-care (01) ==
PROVIDERS: Emergency Provider Emergency Medicine; PCP Family Medicine Sports Medicine
DX: K40.90 Unilateral inguinal hernia, without obstruction or gangrene, not specified as recurrent (principal); R10.31 Right lower quadrant pain; Z79.01 Long term (current) use of anticoagulants
CPT/HCPCS: 74176; 80053; 81003; 83690; 85025; 85610; 93005; 99283; 99284

== ENCOUNTER 2023-01-26 10:49 | Emergency (ER) | payer MEDICARE, OTHER, SELFPAY ==
[2023-01-26 10:50] VITALS: BP 145/75; PULSE 74; RESP 15; TEMP 36.4; O2SAT 97; BMI 27.1
[2023-01-26 11:21] LABS: Appearance Urine UA CLOUDY; Bilirubin Urine UA NEGATIVE (NEGATIVE); Color Urine UA RED; Glucose Urine UA NEGATIVE (Negative); Ketones Urine UA NEGATIVE (NEGATIVE); Leukocyte Esterase Urine UA NEGATIVE (NEGATIVE); Nitrite Urine UA NEGATIVE (Negative); Occult Blood Urine UA 2+ (Negative); Protein Urine UA TRACE (Negative); Urobilinogen Urine UA 0.2 E.U./dL (0.2); pH Urine UA 7.5 (4.5-8.0)
[2023-01-26 11:22] LABS: RBC Urine >100/HPF (0-5/HPF); WBC Urine 0-1/HPF (0-5/HPF)
[2023-01-26 11:23] LABS: Bacteria Urine None Seen; Culture Indicated Urine Cult Not Indicated
--- NOTE | 2023-01-26 11:23 | ED_ITS ---
HPI - Male Genitourinary General Chief complaint: Urogenital-Male Stated complaint: blood in urine Time Seen by Provider: 01/26/23 11:07 Source: patient Mode of arrival: Ambulatory History of Present Illness HPI Narrative: Patient yeni 83-year-old male history of coronary artery disease with stent on aspirin and Plavix presenting today with new onset hematuria. He denies any fever chills abdominal pain nausea vomiting or flank pain. He reports that he noted some gross blood he has 1 or 2 clots, denies any pain. No chest pain palpitations or shortness of breath. Related Data Home Medications Medication Instructions Recorded Confirmed ascorbic acid (vitamin C) 500 mg mg PO 12/28/22 12/28/22 capsule aspirin 81 mg tablet,delayed 81 mg PO DAILY 12/28/22 12/28/22 release atorvastatin 40 mg tablet 40 mg PO BEDTIME 12/28/22 12/28/22 cholecalciferol (vitamin D3) 25 25 mcg PO DAILY 12/28/22 12/28/22 mcg (1,000 unit) capsule clopidogrel 75 mg tablet 75 mg PO DAILY 12/28/22 12/28/22 lisinopril 10 mg tablet 10 mg PO DAILY 12/28/22 12/28/22 metoprolol succinate 50 mg 25 mg PO DAILY 12/28/22 12/28/22 tablet,extended release 24 hr Previous Rx's Medication Instructions Recorded lidocaine 5 % topical patch 1 patch topical Q24H PRN pain #30 07/04/20 ea Allergies Allergy/AdvReac Type Severity Reaction Status Date / Time No Known Drug Allergies Allergy Verified 01/26/23 10:57 Review of Systems Review of Systems ROS Unobtainable: All systems reviewed & are unremarkable except as noted in HPI and below Patient History Medical History Healthy adult Hyperlipidemia Hypertension Prostate cancer Renal cell carcinoma Surgical History H/O kidney removal Social History Smoking Status: Never smoker Smoking Status: Never smoker alcohol intake frequency: holidays/special occasions only Substance Use Type: does not use Exam Initial Vital Signs Initial Vital Signs: Vital Signs Temperature 97.6 F 01/26/23 10:50 Pulse Rate 74 01/26/23 10:50 Respiratory Rate 15 01/26/23 10:50 Blood Pressure 145/75 H 01/26/23 10:50 Pulse Oximetry 97 01/26/23 10:50 Oxygen Delivery Method Room Air 01/26/23 10:50 GENERAL: Alert pleasant 83-year-old male and in no acute distress. HEENT: Head atraumatic,EOMI, pupils reactive, face symmetric, moist mucous membranes CARDIOVASCULAR: Regular rate and rhythm without murmurs, rubs or gallops. RESPIRATORY: Breath sounds equal bilaterally, no wheezes rales or rhonchi. ABDOMEN: Soft, nontender. Normoactive bowel sounds all 4 quadrants. No guarding or rebound. EXTREMITIES: Normal range of motion, no clubbing or edema. Neurovascularly intact NEUROLOGICAL: Alert and oriented x4.Normal gait and speech. SKIN: Warm, dry, no laceration, no petechiae, no rashes or lesions. Course Orders Ordered: ED Orders 01/26/23 10:55 Urinalysis and Microscopic Stat Vital Signs Vital signs: Vital Signs - 8 hr 01/26/23 10:50 01/26/23 11:30 Temperature 97.6 F Pulse Rate 74 64 Respiratory Rate 15 17 Blood Pressure 145/75 H 134/72 Pulse Oximetry 97 97 Oxygen Delivery Method Room Air Room Air MDM - Male Genitourinary Lab Data Labs: Lab Results 01/26/23 Range/Units 10:55 Urine Color Red Urine Appearance Cloudy Urine pH 7.5 (4.5-8.0) Ur Specific [place] 1.010 (1.000-1.035) Urine Protein Trace H (Negative) Urine Glucose (UA) Negative (Negative) g/dL Urine Ketones Negative (NEGATIVE) Urine Occult Blood 2+ H (Negative) Urine Nitrate Negative (Negative) Urine Bilirubin Negative (NEGATIVE) Urine Urobilinogen 0.2 (0.2) E.U./dL Ur Leukocyte Esterase Negative (NEGATIVE) Urine RBC >100/hpf H (0-5/HPF) Urine WBC 0-1/hpf (0-5/HPF) Urine Bacteria None seen (None) Ur Culture Indicated? Cult not indicated MDM Narrative Medical decision making narrative: Patient is a 83-year-old male history of coronary artery disease with stent on Plavix and aspirin presenting today with hematuria me. Urine today is definitely serosanguineous and pink no obvious blood clots or gross hematuria. No evidence of UTI. He is no evidence of sepsis. At this time recommend monitoring urine increasing fluids return as needed. Discharge Plan Departure Patient Disposition: Home Clinical Impression: Hematuria Instructions: DI for Hematuria Activity Restrictions/Additional Instructions: *You have been diagnosed with hematuria *What to do: At this time no evidence of infection. Please monitor very closely. Stay hydrated try to clear urine out. If you have multiple blood clots if inability to urinate if gross blood like you cut yourself and please return to the emergency department *Continue to take medications as directed *Follow up with your primary care provider in 2-3 days or call [phone] *Return to ER if you should have any of the above symptoms or any new, worsening or concerning symptoms Prescriptions: No Action ascorbic acid (vitamin C) 500 mg capsule PO cholecalciferol (vitamin D3) 25 mcg (1,000 unit) capsule 25 mcg PO DAILY aspirin 81 mg tablet,delayed release (DR/EC) 81 mg PO DAILY atorvastatin 40 mg tablet 40 mg PO BEDTIME clopidogrel 75 mg tablet 75 mg PO DAILY lisinopril 10 mg tablet 10 mg PO DAILY metoprolol succinate 50 mg tablet extended release 24 hr 25 mg PO DAILY lidocaine 5 % adhesive patch,medicated 1 patch TOP Q24H PRN (Reason: pain) Qty: 30 0RF Rx Instructions: leave on most painful area for up to 12 hrs Referrals: Vargas Diaz MD [Primary Care Provider] - Stand Alone Forms: Patient Portal/API
[2023-01-26 11:30] VITALS: BP 134/72; PULSE 64; RESP 17; O2SAT 97
== END 2023-01-26 11:50 | disposition home or self-care (01) ==
PROVIDERS: Emergency Provider Emergency Medicine; PCP Family Medicine Sports Medicine
DX: R31.9 Hematuria, unspecified (principal); Z95.5 Presence of coronary angioplasty implant and graft; Z79.01 Long term (current) use of anticoagulants; Z79.82 Long term (current) use of aspirin
CPT/HCPCS: 81001; 99281; 99282

== ENCOUNTER → 2023-04-15 11:42 | Outpatient (CLI) | payer MEDICARE, OTHER, SELFPAY ==
[2023-04-15 13:47] LABS: Prostate Specific Antigen 1.39 ng/mL (0.10-4.00)
== END ==
PROVIDERS: PCP Family Medicine Sports Medicine; Referring Provider Internal Medicine Hematology & Oncology; Visit Provider Internal Medicine Hematology & Oncology
DX: C61 Malignant neoplasm of prostate (principal)
CPT/HCPCS: 36415; 84153

== ENCOUNTER → 2023-05-15 10:23 | Outpatient (CLI) | payer MEDICARE, OTHER, SELFPAY ==
--- NOTE | 2023-05-15 10:26 | DI.CT.S_ITS ---
PROCEDURE: CT IVP A/P W/WO INDICATIONS: GROSS HEMATURIA TECHNIQUE: Optional 5 mm thick noncontrast images acquired from the diaphragm to the symphysis pubis. After the administration of intravenous contrast, 5 mm thick images acquired from the diaphragm to the symphysis pubis after a 10-minute delay. 2 mm thick coronal and sagittal reformats were then performed of the kidneys and ureters. For radiation dose reduction, the following was used: automated exposure control, adjustment of mA and/or kV according to patient size. COMPARISON: None. FINDINGS: Image quality: Excellent. Lung bases: Lung bases are clear. Heart size is normal. Solid organs: Liver: The liver has no mass or intrahepatic biliary ductal dilatation. Subcentimeter hepatic hypodensities are consistent with cysts or small hemangiomas. Biliary: The gallbladder has no gallstones, pericholecystic fluid, gallbladder wall thickening, or surrounding inflammatory change. Pancreas: The pancreas has no mass or ductal dilatation. There is no surrounding inflammation. Spleen: Normal size. There are no masses. Adrenals: Status post left adrenalectomy. The right adrenal gland is normal. Kidneys: Status post left nephrectomy. No obstructive calculus or hydronephrosis in the right kidney. No solid mass. No cystic mass. Peritoneum and bowel: The distal esophagus and stomach are normal. The small bowel has a normal caliber and appearance. The terminal ileum is normal. The large bowel has a normal caliber and appearance. The appendix is normal. No free fluid or air. Nodes and vessels: No retroperitoneal or mesenteric adenopathy by size criteria. Aorta and inferior vena cava are normal in size. Miscellaneous: No abdominal wall mass or hernia. Intramuscular lipomas in the proximal thigh musculature bilaterally. PELVIS: Genitourinary: The bladder has no wall thickening or mass. No bladder calcifications. Status post prostatectomy. Bones: No suspicious bony lesions. Multilevel degenerative changes with disc disease most severe at T12-L1, L1-2, and L5-S1. There is facet arthrosis with grade 1 anterolisthesis of L4-5. IMPRESSION: No nephroureteral calculi. No abnormal enhancement of the right kidney. No solid renal masses. No filling defects on delayed phase images. Status post left nephrectomy, left adrenalectomy, and prostatectomy. Dictated by: Javan Adhikari M.D. on 05/15/2023 at 14:38 Approved by: Javan Adhikari M.D. on 05/15/2023 at 14:45
[2023-05-15 10:55] LABS: BUN Creatinine Ratio 25.5 (6-22); Blood Urea Nitrogen 24 mg/dL (9-20); Calcium 9.4 mg/dL (8.4-10.2); Carbon Dioxide 30 mmol/L (22-32); Chloride 97 mmol/L (98-107); Estimated Glomerular Filt Rate > 60 mL/min (>60); Glucose 97 mg/dL (80-110); HEMOLYSIS < 15 (0-50); Sodium 133 mmol/L (137-145)
== END ==
PROVIDERS: Internal Medicine; PCP Family Medicine Sports Medicine; Referring Provider Physician Assistant Medical; Visit Provider Physician Assistant Medical
DX: R31.0 Gross hematuria (principal); I10 Essential (primary) hypertension; E89.6 Postprocedural adrenocortical (-medullary) hypofunction; Z90.5 Acquired absence of kidney; D17.9 Benign lipomatous neoplasm, unspecified; M47.816 Spondylosis without myelopathy or radiculopathy, lumbar region; M47.817 Spondylosis without myelopathy or radiculopathy, lumbosacral region; M47.815 Spondylosis without myelopathy or radiculopathy, thoracolumbar region; M43.16 Spondylolisthesis, lumbar region
CPT/HCPCS: 36415; 74178; 80048; Q9967

== ENCOUNTER → 2023-07-22 10:22 | Outpatient (CLI) | payer MEDICARE, OTHER, SELFPAY | PROVIDERS: PCP Family Medicine Sports Medicine; Referring Provider Internal Medicine Hematology & Oncology; Visit Provider Internal Medicine Hematology & Oncology | DX: C61 Malignant neoplasm of prostate (principal) | CPT/HCPCS: 36415; 84153 ==

== ENCOUNTER → 2023-10-23 10:10 | Outpatient (CLI) | payer MEDICARE, OTHER, SELFPAY ==
[2023-10-23 12:37] LABS: Prostate Specific Antigen 2.78 ng/mL (0.10-4.00)
== END ==
PROVIDERS: PCP Family Medicine Sports Medicine; Referring Provider Internal Medicine Hematology & Oncology; Visit Provider Internal Medicine Hematology & Oncology
DX: C61 Malignant neoplasm of prostate (principal)
CPT/HCPCS: 36415; 84153

== ENCOUNTER 2024-01-19 09:34 | Emergency (ER) | payer MEDICARE, OTHER, SELFPAY ==
[2024-01-19] VITALS (12 sets, daily range): BP systolic 133–175; BP diastolic 68–93; PULSE 52–74; RESP 9–55; TEMP 36.9; O2SAT 89–100; BMI 27.1
--- NOTE | 2024-01-19 09:48 | DI.RAD.S_ITS ---
PROCEDURE: XR CHEST 1V INDICATIONS: chest pain TECHNIQUE: One view of the chest was acquired. COMPARISON: [facility], CR, XR CHEST 1 VIEW, 03/29/2022, 15:52. [facility], CR, XR CHEST 2 VIEWS, 02/21/2023, 9:29. [facility], CR, XR CHEST 1V, 03/29/2022, 8:36. FINDINGS: Surgical changes and devices: Epigastric clips are seen. Lungs and pleura: On this semiupright portable chest examination, no large pneumothorax or large pleural effusions are seen. No focal infiltrates are seen. Mediastinum: The cardiac contours are within normal limits. The aorta demonstrates calcification and tortuosity. Bones and chest wall: No suspicious bony lesions. Age-appropriate bony degenerative changes are seen. Overlying soft tissues appear unremarkable. IMPRESSION: No acute cardiopulmonary abnormality is seen. Postoperative and degenerative changes are seen. Dictated by: Ravi Hernandez M.D. on 01/19/2024 at 9:53 Approved by: Ravi Hernandez M.D. on 01/19/2024 at 9:54
[2024-01-19 10:10] LABS: Add Manual Diff / Slide Review NO; Basophils Absolute Auto 100 /uL (0-100); Basophils Percent Auto 1.1 % (0-2); Eosinophils Absolute Auto 300 /uL (0-450); Eosinophils Percent Auto 5.8 % (2-4); Hematocrit 39.2 % (41-53); Hemoglobin 13.5 g/dL (13.5-17.5); Lymphocytes Absolute Auto 1300 /uL (1100-4500); Lymphocytes Percent Auto 21.8 % (25-40); Mean Corpuscular HGB Conc 34.5 % (30-36); Mean Corpuscular Hemoglobin 31.3 PG (26-34); Mean Corpuscular Volume 90.8 fL (80-100); Monocytes Absolute Auto 400 /uL (0-900); Monocytes Percent Auto 7.3 % (3-14); Neutrophils Absolute Auto 3800 /uL (1500-7000); Platelet Count 223 X10^3/uL (150-400); Red Blood Cell Count 4.32 X10^6/uL (4.5-5.9); Red Cell Distribution Width 13.3 % (11.6-14.8); White Blood Cell Count 5.9 X10^3/uL (4.5-11.0)
[2024-01-19] MEDS: ASPIRIN 81 MG CHEW TAB 324 MG PO (10:15)
[2024-01-19 10:17] LABS: Prothrombin Time 10.9 SECONDS (9.4-12.5)
[2024-01-19 10:20] LABS: PTT Partial Thromboplastin Tim 29 SECONDS (25.1-36.5)
[2024-01-19 10:22] LABS: Alanine Aminotransferase 21 IU/L (<50); Albumin 3.9 g/dL (3.5-5.0); Albumin Globulin Ratio 1.1 (1.0-2.8); Alkaline Phosphatase 81 U/L (38-126); Aspartate Aminotransferase 27 IU/L (17-59); BUN Creatinine Ratio 27.8 (6-22); Bilirubin Total 0.7 mg/dL (0.2-1.3); Blood Urea Nitrogen 22 mg/dL (9-20); Calcium 9.2 mg/dL (8.4-10.2); Carbon Dioxide 25 mmol/L (22-32); Chloride 100 mmol/L (98-107); Creatine Kinase 48 U/L (55-170); Estimated Glomerular Filt Rate > 60 mL/min (>60); Globulin 3.4 g/dL (1.7-4.1); Glucose 95 mg/dL (80-110); HEMOLYSIS < 15 (0-50); Lipase 89 U/L (23-300); Potassium 4.4 mmol/L (3.4-5.1); Sodium 134 mmol/L (137-145); Total Protein 7.3 g/dL (6.3-8.2)
[2024-01-19 10:33] LABS: Troponin I < 0.012 ng/mL (0.01-0.034)
--- NOTE | 2024-01-19 10:46 | ED.CHESTPAIN ---
HPI - Chest Pain General Chief Complaint: Chest Pain Stated Complaint: chest discomfort coughing Time Seen by Provider: 01/19/24 09:45 Source: patient Mode of arrival: Ambulatory History of Present Illness HPI narrative: 83-year-old gentleman with a history of coronary artery disease with NSTEMI in March of 2022, hypertension, hyperlipidemia, history of prostate and renal cell carcinoma presents with left chest pain. He states that over the last 3-4 months he has developed a minor dry cough and with the cough will intermittently have sharp and very fleeting chest pain. Over the last 6 weeks he has had intermittent episodes of fleeting chest pain described as sharp and stabbing. This morning he woke up and felt that ?something was off? which was the same sensation he had when he was diagnosed with his NSTEMI. He then developed some left-sided central chest pain that felt different and more noticeable than the fleeting stabbing pains he would felt over the last 6 weeks and wanted to come in for further evaluation. He describes no recent fevers, cough, chills. No nausea vomiting or diarrhea. 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 He notes that his left shoulder is sometimes painful with full range of motion but he is still able to lift weights but notes that his left side is somewhat weaker than his right side. The shoulder pain has been present and not significantly worsening over the last year. He reports no other neurologic symptoms, abdominal pain no recent lower extremity edema Related Data Home Medications Medication Instructions Recorded Confirmed ascorbic acid (vitamin C) 500 mg mg PO 12/28/22 12/28/22 capsule aspirin 81 mg tablet,delayed 81 mg PO DAILY 12/28/22 01/19/24 release atorvastatin 40 mg tablet 40 mg PO BEDTIME 12/28/22 01/19/24 cholecalciferol (vitamin D3) 25 25 mcg PO DAILY 12/28/22 12/28/22 mcg (1,000 unit) capsule lisinopril 10 mg tablet 10 mg PO DAILY 12/28/22 01/19/24 metoprolol succinate 50 mg 25 mg PO DAILY 12/28/22 01/19/24 tablet,extended release 24 hr Allergies Allergy/AdvReac Type Severity Reaction Status Date / Time No Known Drug Allergies Allergy Verified 01/19/24 09:52 Review of Systems Review of Systems Narrative: Pertinent positive and negative findings as per HPI Patient History Medical History Renal cell carcinoma Hyperlipidemia Hypertension Prostate cancer Healthy adult Surgical History History of heart artery stent (~03/2022) H/O kidney removal Social History Smoking Status: Never smoker Smoking Status: Never smoker alcohol intake frequency: holidays/special occasions only Substance Use Type: does not use Exam Initial Vital Signs Initial Vital Signs: Vital Signs Temperature 98.4 F 01/19/24 09:42 Pulse Rate 63 01/19/24 09:42 Respiratory Rate 14 01/19/24 09:42 Blood Pressure 175/93 H 01/19/24 09:42 Pulse Oximetry 99 01/19/24 09:42 Oxygen Delivery Method Room Air 01/19/24 09:42 General: Healthy appearing, in no acute distress. Able to give a complete and coherent history. Well-nourished well-developed HEENT: Moist mucous membranes, normal sclera with reactive pupils, Neck: No JVD, supple Respiratory: Lungs are clear to auscultation, no wheezing no rales no rhonchi. Full and symmetrical air movement Chest: No reproducible chest tenderness with palpation Cardiac: Regular rate and rhythm no murmurs no bruits Abdomen: Soft, nontender, good bowel tones, no flank pain Skin: Warm and dry, no rashes Neurologic: Grossly neurologically intact with no obvious asymmetries or abnormalities Extremities: No trauma, well perfused Psych: Cooperative, appropriate insight and affect Course Orders Ordered: ED Orders 01/19/24 09:48 XR chest 1V Stat EKG-12 Lead Stat 01/19/24 10:01 Complete Blood Count AUTO DIFF Stat Comprehensive Metabolic Panel Stat Lipase Stat Magnesium Stat PTT Partial Thromboplastin [place] Stat Prothrombin Time INR Stat Troponin & CK Cardiac Panel Stat 01/19/24 11:55 Trop I [Troponin I] Stat Discontinued Medications Aspirin (Aspirin 81 Mg Chew Tab) 324 mg PO NOW ONE Stop: 01/19/24 09:49 Last Admin: 01/19/24 10:15 Dose: 324 mg Documented By: TC Vital Signs Vital signs: Vital Signs - 8 hr 01/19/24 09:42 01/19/24 09:43 01/19/24 09:43 Temperature 98.4 F Pulse Rate 63 67 Respiratory Rate 14 Blood Pressure 175/93 H 175/93 H Pulse Oximetry 99 98 Oxygen Delivery Method Room Air 01/19/24 10:00 01/19/24 10:00 01/19/24 10:30 Temperature Pulse Rate 60 Respiratory Rate 23 Blood Pressure 139/73 133/70 Pulse Oximetry 89 L Oxygen Delivery Method 01/19/24 10:30 01/19/24 10:47 01/19/24 11:00 Temperature Pulse Rate 56 L 57 L 61 Respiratory Rate 11 L 16 32 H Blood Pressure 133/70 Pulse Oximetry 98 99 99 Oxygen Delivery Method Room Air 01/19/24 11:01 01/19/24 11:01 01/19/24 11:30 Temperature Pulse Rate 60 52 L Respiratory Rate 29 H 14 Blood Pressure 146/69 H Pulse Oximetry 100 99 Oxygen Delivery Method 01/19/24 11:30 01/19/24 12:00 01/19/24 12:00 Temperature Pulse Rate 57 L Respiratory Rate 10 L Blood Pressure 147/69 H 137/80 Pulse Oximetry 100 Oxygen Delivery Method 01/19/24 12:30 01/19/24 12:30 01/19/24 13:00 Temperature Pulse Rate 55 L 74 Respiratory Rate 9 L 55 H Blood Pressure 142/69 H Pulse Oximetry 100 97 Oxygen Delivery Method MDM - Chest Pain Lab Data 01/19/24 10:01 01/19/24 10:01 Labs: Lab Results 01/19/24 01/19/24 Range/Units 10:01 11:55 WBC 5.9 (4.5-11.0) X10^3/uL RBC 4.32 L (4.5-5.9) X10^6/uL Hgb 13.5 (13.5-17.5) g/dL Hct 39.2 L (41-53) % MCV 90.8 (80-100) fL MCH 31.3 (26-34) PG MCHC 34.5 (30-36) % RDW 13.3 (11.6-14.8) % Plt Count 223 (150-400) X10^3/uL Neut % (Auto) 64.0 (50-75) % Lymph % (Auto) 21.8 L (25-40) % [place] % (Auto) 7.3 (3-14) % Eos % (Auto) 5.8 H (2-4) % Baso % (Auto) 1.1 (0-2) % Neut # (Auto) 3800 (8587-1164) /uL Lymph # (Auto) 1300 (3570-2905) /uL [place] # (Auto) 400 (0-900) /uL Eos # (Auto) 300 (0-450) /uL Baso # (Auto) 100 (0-100) /uL PT 10.9 (9.4-12.5) SECONDS INR 1.0 (0.9-1.3) APTT 29 (25.1-36.5) SECONDS Sodium 134 L (137-145) mmol/L Potassium 4.4 (3.4-5.1) mmol/L Chloride 100 (98-107) mmol/L Carbon Dioxide 25 (22-32) mmol/L BUN 22 H (9-20) mg/dL Creatinine 0.79 (0.66-1.25) mg/dL Estimated GFR > 60 (>60) mL/min BUN/Creatinine Ratio 27.8 H (6-22) Glucose 95 (80-110) mg/dL Calcium 9.2 (8.4-10.2) mg/dL Magnesium 2.0 (1.6-2.3) mg/dL Total Bilirubin 0.7 (0.2-1.3) mg/dL AST 27 (17-59) IU/L ALT 21 (<50) IU/L Alkaline Phosphatase 81 (38-126) U/L Total Creatine Kinase 48 L (55-170) U/L Troponin I < 0.012 < 0.012 (0.01-0.034) ng/mL Total Protein 7.3 (6.3-8.2) g/dL Albumin 3.9 (3.5-5.0) g/dL Globulin 3.4 (1.7-4.1) g/dL Albumin/Globulin Ratio 1.1 (1.0-2.8) Lipase 89 (23-300) U/L MDM Narrative Medical decision making narrative: CC: Chest pain Complicating co-morbidities: History of renal cell and prostate cancer, known coronary disease post stenting Data collected from: patient Social determinants of health that may influence the patients condition: Medical records reviewed: ER medical records including note in 2021 with similar chest pain complaints and NSTEMI diagnosis Differential considered: Acute coronary syndrome, pneumothorax, chest mass, pleural effusion, musculoskeletal pain Exam documented above, pertinent findings include: Exam is quite reassuring and entirely benign Lab Test results independently reviewed as above. Pertinent findings: CBC is unremarkable, no signs of leukocytosis or anemia. Metabolic panel is reassuring Initial troponin is undetectable, repeat troponin 2 hours is also undetectable Lipase is appropriate Independently reviewed EKG: Sinus rhythm at a rate of 63. He does show first-degree AV block. No acute ischemic changes Imaging studies independently reviewed: No acute changes, normal cardiac silhouette, no consolidated infiltrates, no pneumothorax Discussion: 83-year-old gentleman with fleeting sharp chest pain for the last number of weeks and today had some recurrent left-sided chest pain. This does not feel like the pain that was associated with his NSTEMI about 2 years ago. Workup is entirely reassuring. There is no evidence of infection, NSTEMI, actual STEMI, pulmonary abnormalities, pneumonia, pneumothorax. At this point I believe most of his issues are musculoskeletal and this is shared with him. Reassurance is given, questions are answered. I do not believe that additional workup or imaging studies are required and he does not need to be hospitalized at this time. He is safe for discharge home Discharge Plan Departure Patient Disposition: Home Clinical Impression: Chest pain, musculoskeletal Instructions: DI for Musculoskeletal Pain Activity Restrictions/Additional Instructions: Thank you for coming in today Your workup was very reassuring. I did not find any evidence to suggest a heart attack or heart attack like syndrome. There is no pneumonia, collapsed lung or alternate explanation that would require further workup or hospitalization at this time. I do believe coming in to get this checked out was absolutely appropriate. I am also quite happy that I am going to send you home. It is okay to try Tylenol if you are having fleeting episodes of pain that are enough to consider taking a dose of Tylenol. If you have that ?sense of something wrong? like you had with your event that led to your stent, it is appropriate to return to the ER. Prescriptions: No Action ascorbic acid (vitamin C) 500 mg capsule PO cholecalciferol (vitamin D3) 25 mcg (1,000 unit) capsule 25 mcg PO DAILY aspirin 81 mg tablet,delayed release (DR/EC) 81 mg PO DAILY atorvastatin 40 mg tablet 40 mg PO BEDTIME lisinopril 10 mg tablet 10 mg PO DAILY metoprolol succinate 50 mg tablet extended release 24 hr 25 mg PO DAILY Referrals: Vargas Diaz MD [Primary Care Provider] - Stand Alone Forms: Patient Portal/API
[2024-01-19 12:24] LABS: Troponin I < 0.012 ng/mL (0.01-0.034)
== END 2024-01-19 13:27 | disposition home or self-care (01) ==
PROVIDERS: Emergency Provider Emergency Medicine; PCP Family Medicine Sports Medicine
DX: R07.89 Other chest pain (principal); I25.2 Old myocardial infarction
CPT/HCPCS: 36415; 71045; 80053; 82550; 83690; 83735; 84484; 85025; 85610; 85730; 93005; 99284

== ENCOUNTER → 2024-04-17 10:33 | Outpatient (CLI) | payer MEDICARE, OTHER, SELFPAY | PROVIDERS: PCP Family Medicine Sports Medicine; Referring Provider Internal Medicine Hematology & Oncology; Visit Provider Internal Medicine Hematology & Oncology | DX: C61 Malignant neoplasm of prostate (principal) | CPT/HCPCS: 36415; 84153 ==

== ENCOUNTER → 2024-04-24 12:57 | Outpatient (CLI) | payer MEDICARE, OTHER, SELFPAY ==
[2024-04-24 14:54] LABS: Alanine Aminotransferase 22 IU/L (<50); Albumin 4.1 g/dL (3.5-5.0); Albumin Globulin Ratio 1.4 (1.0-2.8); Alkaline Phosphatase 86 U/L (38-126); Aspartate Aminotransferase 31 IU/L (17-59); BUN Creatinine Ratio 18.9 (6-22); Bilirubin Total 0.9 mg/dL (0.2-1.3); Blood Urea Nitrogen 18 mg/dL (9-20); Carbon Dioxide 27 mmol/L (22-32); Chloride 103 mmol/L (98-107); Cholesterol 126 mg/dL (140-199); Estimated Glomerular Filt Rate > 60 mL/min (>60); Globulin 2.9 g/dL (1.7-4.1); Glucose 88 mg/dL (80-110); HDL Cholesterol 54 mg/dL (40-60); HEMOLYSIS < 15 (0-50); LDL Cholesterol Calculated 58 mg/dL (<100); Potassium 4.7 mmol/L (3.4-5.1); Sodium 134 mmol/L (137-145); Triglycerides 70 mg/dL (35-150)
== END ==
PROVIDERS: PCP Family Medicine Sports Medicine; Referring Provider Internal Medicine; Visit Provider Internal Medicine
DX: E78.5 Hyperlipidemia, unspecified (principal); I10 Essential (primary) hypertension
CPT/HCPCS: 36415; 80053; 80061

== ENCOUNTER → 2024-07-21 10:54 | Outpatient (CLI) | payer MEDICARE, OTHER, SELFPAY ==
[2024-07-21 13:31] LABS: Prostate Specific Antigen 4.84 ng/mL (0.10-4.00)
== END ==
PROVIDERS: PCP Family Medicine Sports Medicine; Referring Provider Internal Medicine Hematology & Oncology; Visit Provider Internal Medicine Hematology & Oncology
DX: C61 Malignant neoplasm of prostate (principal)
CPT/HCPCS: 36415; 84153

== ENCOUNTER → 2024-10-30 11:33 | Outpatient (CLI) | payer MEDICARE, OTHER, SELFPAY ==
[2024-10-30 14:36] LABS: Prostate Specific Antigen 6.82 ng/mL (0.10-4.00)
== END ==
PROVIDERS: PCP Family Medicine Sports Medicine; Referring Provider Internal Medicine Hematology & Oncology; Visit Provider Internal Medicine Hematology & Oncology
DX: C61 Malignant neoplasm of prostate (principal)
CPT/HCPCS: 36415; 84153

== ENCOUNTER → 2025-01-25 11:07 | Outpatient (CLI) | payer MEDICARE, OTHER, SELFPAY ==
[2025-01-25 12:38] LABS: Prostate Specific Antigen 7.56 ng/mL (0.10-4.00)
== END ==
PROVIDERS: PCP Family Medicine Sports Medicine; Referring Provider Internal Medicine Hematology & Oncology; Visit Provider Internal Medicine Hematology & Oncology
DX: C61 Malignant neoplasm of prostate (principal)
CPT/HCPCS: 36415; 84153

== ENCOUNTER 2025-04-02 11:08 | Emergency (ER) | payer MEDICARE, OTHER, SELFPAY ==
[2025-04-02] VITALS (10 sets, daily range): BP systolic 138–198; BP diastolic 74–87; PULSE 56–65; RESP 9–20; TEMP 36.5; O2SAT 97–99; BMI 27.3
--- NOTE | 2025-04-02 11:22 | EKG_ITS ---
[address] [address] Test Date: 2025-04-02 Pat Name: Mushtaq Casper Department: Room: Gender: Male [employer]: DESIREE : 1940 Requested By: Order Number: [id number] Reading MD: Jay Castanon MD Measurements Intervals [place] Rate: 61 P: 31 CA: 208 QRS: 63 QRSD: 132 T: 34 QT: 452 QTc: 455 Interpretive Statements Normal sinus rhythm Right bundle branch block NO SIGNIFICANT CHANGE FROM PRIOR TRACING Electronically Signed On 04-02-2025 11:32:10 PDT by Jay Castanon MD
[2025-04-02 11:31] LABS: Add Manual Diff / Slide Review NO; Basophils Absolute Auto 0 /uL (0-100); Basophils Percent Auto 0.7 % (0-2); Eosinophils Absolute Auto 200 /uL (0-450); Eosinophils Percent Auto 3.3 % (2-4); Hematocrit 42.1 % (41-53); Hemoglobin 14.4 g/dL (13.5-17.5); Lymphocytes Absolute Auto 1300 /uL (1100-4500); Lymphocytes Percent Auto 18.7 % (25-40); Mean Corpuscular HGB Conc 34.2 % (30-36); Mean Corpuscular Hemoglobin 31.7 PG (26-34); Mean Corpuscular Volume 92.7 fL (80-100); Monocytes Absolute Auto 500 /uL (0-900); Monocytes Percent Auto 7.5 % (3-14); Neutrophils Absolute Auto 4900 /uL (1500-7000); Neutrophils Percent Auto 69.8 % (50-75); Platelet Count 232 X10^3/uL (150-400); Red Blood Cell Count 4.54 X10^6/uL (4.5-5.9); Red Cell Distribution Width 12.9 % (11.6-14.8)
--- NOTE | 2025-04-02 11:34 | DI.CT.S_ITS ---
PROCEDURE: CT ABDOMEN PELVIS W CON INDICATIONS: right lower quad pain TECHNIQUE: After the administration of intravenous contrast, axial sections acquired from the lung bases to the pubic symphysis. Coronal and sagittal reformats were performed. For radiation dose reduction, the following was used: automated exposure control, adjustment of mA and/or kV according to patient size. C adrenalectomy OMPARISON: [facility], CT, CT KIDNEY URETER BLADDER (KUB), 11/15/2022, 15:13. FINDINGS: Image quality: Diagnostic. Lower Chest: Probable LAD stent. Normal heart size. Extreme lung bases are clear. ABDOMEN: Liver: No solid mass. Gallbladder: No radiopaque gallstones or wall thickening. Biliary ducts: No biliary dilation. Pancreas: No ductal dilation. Spleen: Size is within normal limits. Adrenal Glands: No adrenal nodules. Kidneys and Ureters: Left kidney and adrenal have been resected. Right kidney and adrenal are unremarkable. Stomach and Bowel: Normal colonic caliber, without significant wall thickening. Normal appendix. Mobile cecum. Large fecal load. Peritoneum: No abnormal intraperitoneal fluid. No free air. Ventral Wall: No significant ventral hernia. Abdominal Nodes: No retroperitoneal or mesenteric adenopathy by size criteria. Vessels: Aorta and inferior vena cava are normal in size. PELVIS: Pelvic Organs: Radical prostatectomy.. Bladder: Normal distension. No wall thickening. Pelvic Nodes: No enlarged lymph nodes. Miscellaneous: No inguinal hernias are seen. Bones: No aggressive osseous abnormality. Diffuse lumbar degenerative change. IMPRESSION: 1. Remote radical prostatectomy, left nephrectomy, and left adrenalectomy 2. No metastatic disease identified. 3. No acute abdominal process. 4. Probable coronary stent. 5. Normal appendix. 6. Mobile cecum. 7. Large fecal load. Dictated by: Anson Thomson M.D. on 04/02/2025 at 13:09 Approved by: Anson Thomson M.D. on 04/02/2025 at 13:14
--- NOTE | 2025-04-02 11:37 | ED_ITS ---
HPI - Abdominal Pain General Chief Complaint: Abdominal Pain Stated Complaint: Sharp pain on upper right of stomach Time Seen by Provider: 04/02/25 11:23 History of Present Illness HPI narrative: Patient is a 85-year-old male history of hypertension hyperlipidemia prostate cancer renal cell carcinoma with nephrectomy presenting today with right lower quadrant pain. He reports it has been off and on for couple of weeks but last night he was unable to sleep. It does not go down into his leg no nausea or vomiting no change in bowel habits. Denies any kind chest pain or shortness of breath. Did not take anything for pain. Related Data Home Medications Medication Instructions Recorded Confirmed ascorbic acid (vitamin C) 500 mg mg PO 12/28/22 12/28/22 capsule aspirin 81 mg tablet,delayed 81 mg PO DAILY 12/28/22 01/19/24 release atorvastatin 40 mg tablet 40 mg PO BEDTIME 12/28/22 01/19/24 cholecalciferol (vitamin D3) 25 25 mcg PO DAILY 12/28/22 12/28/22 mcg (1,000 unit) capsule lisinopril 10 mg tablet 10 mg PO DAILY 12/28/22 01/19/24 metoprolol succinate 50 mg 25 mg PO DAILY 12/28/22 01/19/24 tablet,extended release 24 hr Allergies Allergy/AdvReac Type Severity Reaction Status Date / Time No Known Drug Allergies Allergy Verified 01/19/24 09:52 Patient History Medical History Renal cell carcinoma Hyperlipidemia Hypertension Prostate cancer Healthy adult Surgical History History of heart artery stent (~03/2022) H/O kidney removal Social History Smoking Status: Never smoker Smoking Status: Never smoker alcohol intake frequency: holidays/special occasions only Exam Initial Vital Signs Initial Vital Signs: Vital Signs Pulse Rate 63 04/02/25 11:17 Pulse Oximetry 97 04/02/25 11:17 GENERAL: Alert pleasant 85-year-old male and in no acute distress. HEENT: Head atraumatic,EOMI, pupils reactive, face symmetric, moist mucous membranes CARDIOVASCULAR: Regular rate and rhythm without murmurs, rubs or gallops. RESPIRATORY: Breath sounds equal bilaterally, no wheezes rales or rhonchi. ABDOMEN: Soft, mild right lower quadrant pain no guarding no rebound EXTREMITIES: Normal range of motion, no clubbing or edema. Neurovascularly intact NEUROLOGICAL: Alert and oriented x4.Normal gait and speech. Cranial nerves II through XII grossly intact. SKIN: Warm, dry, no laceration, no petechiae, no rashes or lesions. Course Orders Ordered: ED Orders 04/02/25 11:18 Complete Blood Count AUTO DIFF Stat Comprehensive Metabolic Panel Stat Lipase Stat 04/02/25 11:22 EKG-12 Lead Stat 04/02/25 11:34 CT abdomen pelvis w con Stat 04/02/25 12:21 Urinalysis and Microscopic Stat Discontinued Medications Ondansetron HCl (Ondansetron 4 Mg/2 Ml Inj) 4 mg IV NOW PRN PRN Reason: Nausea And Vomiting Ondansetron HCl (Ondansetron 4 Mg Odt) 4 mg PO NOW PRN PRN Reason: Nausea And Vomiting Vital Signs Vital signs: Vital Signs - 8 hr 04/02/25 11:17 04/02/25 11:18 04/02/25 11:18 Temperature Pulse Rate 63 63 Respiratory Rate 16 Blood Pressure 198/86 H 198/86 H Pulse Oximetry 97 99 Oxygen Delivery Method Room Air 04/02/25 11:18 04/02/25 11:21 04/02/25 11:21 Temperature Pulse Rate 63 62 Respiratory Rate Blood Pressure 164/78 H Pulse Oximetry 98 99 Oxygen Delivery Method 04/02/25 11:30 04/02/25 11:30 04/02/25 12:00 Temperature 97.7 F Pulse Rate 58 L Respiratory Rate 9 L Blood Pressure 138/74 149/77 H Pulse Oximetry 97 Oxygen Delivery Method 04/02/25 12:00 04/02/25 12:22 04/02/25 12:22 Temperature Pulse Rate 57 L 62 Respiratory Rate 10 L 13 Blood Pressure 168/87 H Pulse Oximetry 99 99 Oxygen Delivery Method Room Air 04/02/25 12:30 04/02/25 12:30 04/02/25 13:00 Temperature Pulse Rate 56 L Respiratory Rate 12 Blood Pressure 155/74 H 171/79 H Pulse Oximetry 98 Oxygen Delivery Method 04/02/25 13:00 04/02/25 13:30 04/02/25 13:31 Temperature Pulse Rate 56 L 63 Respiratory Rate 13 20 Blood Pressure 170/80 H Pulse Oximetry 98 98 Oxygen Delivery Method 04/02/25 13:31 Temperature Pulse Rate 65 Respiratory Rate 18 Blood Pressure Pulse Oximetry 99 Oxygen Delivery Method MDM - Abdominal Pain Lab Data 04/02/25 11:18 04/02/25 11:18 Labs: Lab Results 04/02/25 04/02/25 Range/Units 11:18 12:21 WBC 7.0 (4.5-11.0) X10^3/uL RBC 4.54 (4.5-5.9) X10^6/uL Hgb 14.4 (13.5-17.5) g/dL Hct 42.1 (41-53) % MCV 92.7 (80-100) fL MCH 31.7 (26-34) PG MCHC 34.2 (30-36) % RDW 12.9 (11.6-14.8) % Plt Count 232 (150-400) X10^3/uL Neut % (Auto) 69.8 (50-75) % Lymph % (Auto) 18.7 L (25-40) % [place] % (Auto) 7.5 (3-14) % Eos % (Auto) 3.3 (2-4) % Baso % (Auto) 0.7 (0-2) % Neut # (Auto) 4900 (3299-5689) /uL Lymph # (Auto) 1300 (6652-9237) /uL [place] # (Auto) 500 (0-900) /uL Eos # (Auto) 200 (0-450) /uL Baso # (Auto) 0 (0-100) /uL Sodium 133 L (137-145) mmol/L Potassium 4.4 (3.4-5.1) mmol/L Chloride 100 (98-107) mmol/L Carbon Dioxide 26 (22-32) mmol/L BUN 19 (9-20) mg/dL Creatinine 0.93 (0.66-1.25) mg/dL Estimated GFR > 60 (>60) mL/min BUN/Creatinine Ratio 20.4 (6-22) Glucose 93 (70-99) mg/dL Calcium 9.6 (8.4-10.2) mg/dL Total Bilirubin 1.2 (0.2-1.3) mg/dL AST 30 (17-59) IU/L ALT 19 (<50) IU/L Alkaline Phosphatase 95 (38-126) U/L Total Protein 7.3 (6.3-8.2) g/dL Albumin 4.2 (3.5-5.0) g/dL Globulin 3.1 (1.7-4.1) g/dL Albumin/Globulin Ratio 1.4 (1.0-2.8) Lipase 80 (23-300) U/L Urine Color Yellow Urine Appearance Clear Urine pH 6.0 (4.5-8.0) Ur Specific [place] 1.010 (1.000-1.035) Urine Protein Negative (Negative) Urine Glucose (UA) Negative (Negative) g/dL Urine Ketones Negative (NEGATIVE) Urine Occult Blood Trace-intact (Negative) Urine Nitrate Negative (Negative) Urine Bilirubin Negative (NEGATIVE) Urine Urobilinogen 0.2 (0.2) E.U./dL Ur Leukocyte Esterase Negative (NEGATIVE) Urine RBC 0-1/hpf D (0-5/HPF) Urine WBC None seen (0-5/HPF) Ur Squamous Epith Cells None seen (0-5/HPF) Urine Bacteria None seen (None) Ur Culture Indicated? Cult not indicated Vol Urine Centrifuged 10ml (spun) Point of care testing: Urine Dip Bedside Urine Glucose Negative Bedside Urine Bilirubin - Negative Bedside Urine Ketone - Negative Urine Specific [place] 1.010 Bedside Urine Occult Blood + Bedside Urine pH 6.0 Bedside Urine Protein - Negative Bedside Urine Urobilinogen - Negative Bedside Urine Nitrite - Negative Bedside Urine Leukocytes - Negative Esterase Imaging Data CT scan - abdomen/pelvis: Radiologist's Impression: PROCEDURE: CT ABDOMEN PELVIS W CON INDICATIONS: right lower quad pain TECHNIQUE: After the administration of intravenous contrast, axial sections acquired from the lung bases to the pubic symphysis. Coronal and sagittal reformats were performed. For radiation dose reduction, the following was used: automated exposure control, adjustment of mA and/or kV according to patient size. C adrenalectomy OMPARISON: [facility], CT, CT KIDNEY URETER BLADDER (KUB), 11/15/2022, 15:13. FINDINGS: Image quality: Diagnostic. Lower Chest: Probable LAD stent. Normal heart size. Extreme lung bases are clear. ABDOMEN: Liver: No solid mass. Gallbladder: No radiopaque gallstones or wall thickening. Biliary ducts: No biliary dilation. Pancreas: No ductal dilation. Spleen: Size is within normal limits. Adrenal Glands: No adrenal nodules. Kidneys and Ureters: Left kidney and adrenal have been resected. Right kidney and adrenal are unremarkable. Stomach and Bowel: Normal colonic caliber, without significant wall thickening. Normal appendix. Mobile cecum. Large fecal load. Peritoneum: No abnormal intraperitoneal fluid. No free air. Ventral Wall: No significant ventral hernia. Abdominal Nodes: No retroperitoneal or mesenteric adenopathy by size criteria. Vessels: Aorta and inferior vena cava are normal in size. PELVIS: Pelvic Organs: Radical prostatectomy.. Bladder: Normal distension. No wall thickening. Pelvic Nodes: No enlarged lymph nodes. Miscellaneous: No inguinal hernias are seen. Bones: No aggressive osseous abnormality. Diffuse lumbar degenerative change. IMPRESSION: 1. Remote radical prostatectomy, left nephrectomy, and left adrenalectomy 2. No metastatic disease identified. 3. No acute abdominal process. 4. Probable coronary stent. 5. Normal appendix. 6. Mobile cecum. 7. Large fecal load. Dictated by: Anson Thomson M.D. on 04/02/2025 at 13:09 ECG Data Attestation: I personally reviewed and interpreted this ECG as follows: Prior ECG tracings: available for review Interpretation: Normal sinus rhythm rate 61 OH interval 208 QRS [address] changes or T- wave inversions MDM Narrative Medical decision making narrative: Patient 85-year-old male presenting today with right lower quadrant pain. His suddenly he has been off and on for awhile but maybe worse last night. No nausea or vomiting change in bowel habits. On exam abdomen is soft nontender no peritoneal signs. Blood work has been reviewed CBC no leukocytosis WBC 7.0 hemoglobin 14.4 hematocrit 42.1 CMP mild hyponatremia sodium 133 but this is baseline was previously 134 no other electrolyte abnormalities creatinine 0.9 Bilirubin 1.2 AST ALT within normal limits, lipase a CT she has a normal appendix postsurgical changes and large fecal load EKGs reviewed no ischemia Patient not requiring anything for pain at this time. Abdomen is soft nontender. Blood work is overall reassuring CT does not show any evidence of or cause for abnormality. At this time recommend outpatient follow up. No need for further evaluation or workup. Discharge Plan Departure Patient Disposition: Home Clinical Impression: Abdominal pain Instructions: DI for Abdominal Pain-Adult Activity Restrictions/Additional Instructions: *You have been diagnosed with abdominal pain *What to do: At this time blood work and CT scanner overall reassuring you do have some mild constipation *Continue to take medications as directed [id number] stool softeners if needed Tylenol 500 mg as needed for pain *Follow up with your primary care provider in 2-3 days or call [phone] *Return to ER if you should have increasing abdominal pain nausea vomiting [or] any new, worsening or concerning symptoms Prescriptions: No Action ascorbic acid (vitamin C) 500 mg capsule PO cholecalciferol (vitamin D3) 25 mcg (1,000 unit) capsule 25 mcg PO DAILY aspirin 81 mg tablet,delayed release (DR/EC) 81 mg PO DAILY atorvastatin 40 mg tablet 40 mg PO BEDTIME lisinopril 10 mg tablet 10 mg PO DAILY metoprolol succinate 50 mg tablet extended release 24 hr 25 mg PO DAILY Referrals: Vargas Diaz MD [Primary Care Provider] - Stand Alone Forms: Patient Portal/API/Survey
[2025-04-02 11:54] LABS: Alanine Aminotransferase 19 IU/L (<50); Albumin 4.2 g/dL (3.5-5.0); Albumin Globulin Ratio 1.4 (1.0-2.8); Alkaline Phosphatase 95 U/L (38-126); Aspartate Aminotransferase 30 IU/L (17-59); BUN Creatinine Ratio 20.4 (6-22); Bilirubin Total 1.2 mg/dL (0.2-1.3); Blood Urea Nitrogen 19 mg/dL (9-20); Calcium 9.6 mg/dL (8.4-10.2); Carbon Dioxide 26 mmol/L (22-32); Chloride 100 mmol/L (98-107); Estimated Glomerular Filt Rate > 60 mL/min (>60); Globulin 3.1 g/dL (1.7-4.1); Glucose 93 mg/dL (70-99); HEMOLYSIS < 15 (0-50); Lipase 80 U/L (23-300); Potassium 4.4 mmol/L (3.4-5.1); Sodium 133 mmol/L (137-145); Total Protein 7.3 g/dL (6.3-8.2)
[2025-04-02 12:31] LABS: Appearance Urine UA CLEAR; Bilirubin Urine UA NEGATIVE (NEGATIVE); Color Urine UA YELLOW; Glucose Urine UA NEGATIVE (Negative); Ketones Urine UA NEGATIVE (NEGATIVE); Leukocyte Esterase Urine UA NEGATIVE (NEGATIVE); Nitrite Urine UA NEGATIVE (Negative); Occult Blood Urine UA TRACE-INTACT (Negative); Protein Urine UA NEGATIVE (Negative); Urobilinogen Urine UA 0.2 E.U./dL (0.2)
[2025-04-02 12:44] LABS: Urine Volume 10mL (spun)
[2025-04-02 12:45] LABS: Bacteria Urine None Seen; Culture Indicated Urine Cult Not Indicated; RBC Urine 0-1/HPF (0-5/HPF); Squamous Epithelial Cell Urine None Seen (0-5/HPF); WBC Urine None Seen (0-5/HPF)
== END 2025-04-02 13:39 | disposition home or self-care (01) ==
PROVIDERS: Emergency Provider Emergency Medicine; PCP Family Medicine Sports Medicine
DX: R10.31 Right lower quadrant pain (principal); I10 Essential (primary) hypertension
CPT/HCPCS: 36415; 74177; 80053; 81001; 81003; 83690; 85025; 93005; 93010; 99283; 99284; Q9967

== ENCOUNTER → 2025-05-11 10:43 | Outpatient (CLI) | payer MEDICARE, OTHER, SELFPAY ==
[2025-05-11 11:59] LABS: Prostate Specific Antigen 10.4 ng/mL (0.10-4.00)
== END ==
PROVIDERS: PCP Family Medicine Sports Medicine; Referring Provider Internal Medicine Hematology & Oncology; Visit Provider Internal Medicine Hematology & Oncology
DX: C61 Malignant neoplasm of prostate (principal)
CPT/HCPCS: 36415; 84153